=== PATIENT | male | born 1940 | race Caucasian/White ===

== ENCOUNTER 2017-03-16 18:40 | Inpatient (IN) | payer OTHER ==
[~2017-03-16] VITALS: Ht 180.3 cm; Wt 75.2 kg
[2017-03-16] VITALS (10 sets, daily range): BP systolic 79–122; BP diastolic 54–71
--- NOTE | ~2017-03-16 | HC ---
[facility] [place] [place] [address] CONSULTATION Name: KEISHA BRITT Room #: 314-P ADM IN M.R.#: [id number] Admission: 03/16/17 Attend Phys: Oma Hernandez Discharge: Date of : 38 Report #: [id number] THIS REPORT FOR: //name// CC: Hola Hernandez DATE OF SERVICE: 03/16/2017 REFERRING PROVIDER: Adrián Figueroa MD. REASON FOR CONSULTATION: Emergent evaluation of abdominal pain. HISTORY OF PRESENT ILLNESS: The patient is a 76-year-old male who was transferred to [facility] from [facility] because of overt peritonitis, hypotension and a CT scan showing global small bowel pneumatosis, portal venous gas concerning for necrotic bowel. The patient had sudden onset of severe mid abdominal pain starting at 1:30 this afternoon that awoke him from sleeping in his recliner. The patient states that the pain worsened in intensity and he presented to the [facility] Emergency Room for evaluation. After his thorough evaluation including laboratories and a CT scan of the abdomen and pelvis with findings as delineated above, general Surgery was asked to evaluate and Dr. Quinn Swanson suspected necrotic bowel and initiated transfer as we have more appropriate supportive services here. The patient was medevaced here where I am seeing the patient in the Emergency Room for initial evaluation and he is overwhelmingly hypotensive with blood pressures currently at 72/48 even in light of aggressive fluid resuscitation. The patient did receive a dose of Levaquin and Flagyl at the outside hospital and certainly exhibits gross peritonitis at this time. PAST MEDICAL HISTORY: Hypertension, coronary artery disease with prior KS, COPD and tobaccoism. PAST SURGICAL HISTORY: Prior coronary stenting and hip replacement. HOME MEDICATIONS: Ventolin inhaler, losartan, hydrochlorothiazide, Bystolic and simvastatin. ALLERGIES: No known drug allergies. FAMILY HISTORY: Reviewed and noncontributory. SOCIAL HISTORY: The patient has a very lengthy smoking history of greater than 50 years and drinks wine on a weekly basis. He lives at home with his and has a son and daughter here today. His son is a dentist in town. He has no history of illicit drug use. [facility] [address] [place] [address] CONSULTATION Name: KEISHA BRITT Room #: 314-P [facility] IN M.R.#: [id number] Admission: 03/16/17 Attend Phys: Oma Hernandez Discharge: Date of : 38 Report #: [id number] REVIEW OF SYSTEMS: GENERAL: The patient denies nocturnal fevers or chills. HEENT: No change in vision, change in hearing. NECK: No swelling or difficulty swallowing. HEART: No chest pain or palpitations. LUNGS: No cough or shortness of breath. ABDOMEN: Abdominal pain. No nausea or vomiting. GENITOURINARY: No dysuria or hematuria. ENDOCRINE: No polyuria, polydipsia. HEMATOLOGIC: No history of bleeding or easy bruising. EXTREMITIES: No history of weakness or limited range of motion. NEUROLOGIC: No history of syncope or near syncopal episodes. SKIN AND INTEGUMENT: No history of abnormal lesions or moles. PSYCHIATRIC: No history of anxiety or depression. PHYSICAL EXAMINATION: VITAL SIGNS: Temperature was 97.1, pulse 111, respirations 24, blood pressure 72/48. He stands 5 feet 11 inches tall and weighs 159 pounds. GENERAL: He is alert and oriented, in significant distress. HEENT: Normocephalic, atraumatic. Pupils equal, round, reactive to light. NECK: Supple, without lymphadenopathy. Trachea midline. HEART: Tachycardic, but regular rhythm. LUNGS: Decreased air entry at bases, but clear to auscultation otherwise bilaterally. ABDOMEN: Distended, firm, taut and grossly peritonitic with positive guarding, positive rebound and no appreciable bowel sounds. GENITOURINARY: Normal external male genitalia. EXTREMITIES: No clubbing, cyanosis or edema. NEUROLOGIC: Cranial nerves 2 through 12 are grossly intact. PSYCHIATRIC: Normal mood and affect. SKIN AND INTEGUMENT: No abnormal lesions or moles. LABORATORY AND X-RAY DATA: Review of labs from the outside hospital show white blood cell count of 8.6 thousand; hemoglobin 16.8; platelets 241,000. Creatinine 1.0. Liver function enzymes are normal. Lipase 105. Troponins negative. CT scan shows distal small-bowel obstruction with small bowel pneumatosis and marked portal venous gas. ASSESSMENT AND PLAN: A 76-year-old male with what appears to be likely ischemic bowel secondary to small-bowel obstruction of unknown etiology as he has had no abdominal operations. After a thorough discussion of greater than an hour involving discussing with the Emergency Room physician at [facility], Dr. Swanson, the surgeon at [facility] as well as Dr. Espinal of the Cardiology Service who follows this patient and discussing with the patient himself including performing a thorough physical exam and the possible etiology of his abdominal catastrophe, we have made arrangements to proceed [facility] [address] [place] [address] CONSULTATION Name: KEISHA BRITT Room #: 314-P ADM IN M.R.#: [id number] Admission: 03/16/17 Attend Phys: Oma Hernandez Discharge: Date of : 39 Report #: [id number] emergently to the operating room for exploratory laparotomy. Risks, benefits and alternatives of that have been discussed with the patient in great detail and he agrees to proceed as outlined. I sincerely appreciate this consult. I will follow closely postoperatively and leave any further recommendations in the patient's chart as appropriate. <ELECTRONICALLY SIGNED> By: Brady Sorensen MD, FACS 03/22/17 2254 1523 0025 Brady Sorensen MD, FACS /nt
--- NOTE | ~2017-03-16 | EKG ---
[address] [place] [address] ELECTROCARDIOGRAM REPORT Name: KEISHA BRITT Room #: 239-P ADM IN M.R.#: [id number] Admission: 03/16/17 Attend Phys: Oma Hernandez Discharge: Date of : 39 Report #: [id number] THIS REPORT FOR: //name// [facility] Test Date: 2017-03-17 Test Time: 09:11:51 Pat Name: KEISHA BRITT Department: Room: 239 P Gender: M Paper Winder: NACHO : 1940 Requested By: Nahomi Perry Order Number: [id number] MD: Ventura Jacinto Measurements Intervals [place] Rate: 73 P: 61 VA: 167 QRS: 63 QRSD: 103 T: 57 QT: 402 QTc: 443 Interpretive Statements Sinus rhythm Low voltage, extremity leads Compared to ECG 01/29/2006 06:58:[address] and T-wave abnormality no longer present Electronically Signed On 03-18-2017 12:37:36 CDT by Ventura Jacinto [email or web address] <ELECTRONICALLY SIGNED> By: Ventura Jacinto MD, [facility] 03/18/17 1237 0 0 Ventura Jacinto MD, [facility] /EPI
--- NOTE | ~2017-03-16 | 2DMMODE ---
[facility] [address] [place] [address] 2 D/M-MODE ECHOCARDIOGRAM Name: KEISHA BRITT Room #: 239-P ADM IN M.R.#: [id number] Admission: 03/16/17 Attend Phys: Oma Ely Discharge: Date of : 38 Date of Service: 03/17/17 0924 Report #: [id number] THIS REPORT FOR: //name// APPROVED REPORT Study performed: 03/17/2017 08:14:09 EXAM: Comprehensive 2D, Doppler, and color-flow Echocardiogram Patient Location: Bedside Room #: 239 Status: routine BSA: 1.91 HR: 74 bpm BP: 94/64 mmHg Rhythm: NSR Other Information Study Quality: Fair/ limited windows Indications Hypotension COPD CAD Hx: [place] 2D Dimensions RVDd: 37.64 mm LVEF(%): 68.93 (>50%) IVSd: 9.04 (7-11mm) LVOT Diam: 20.67 (18-24mm) LVDd: 37.06 mm PWd: 7.46 (7-11mm) LVDs: 23.01 (25-40mm) Aortic Root: 29.49 mm Christie's LVEF: 68.93 % Aortic Valve AoV Peak David.: 1.16 m/s AO Peak Gr.: 5.42 mmHg LVOT Max P.19 mmHg LVOT Max V: 0.89 m/s PEDRO Vmax: 2.57 cm2 Mitral Valve E/A Ratio: 0.5 MV Decel. Time: 164.22 ms MV E Max David.: 0.31 m/s [facility] [address] [place] [address] 2 D/M-MODE ECHOCARDIOGRAM Name: KEISHA BRITT Room #: 239-P [facility] IN .R.#: [id number] Admission: 03/16/17 Attend Phys: Oma Ely Discharge: Date of : 38 Date of Service: 03/17/17 0924 Report #: [id number] MV A David.: 0.58 m/s MV PHT: 47.62 ms IVRT: 101.50 ms Pulmonary Valve PV Peak David.: 0.82 m/s PV Peak Gr.: 2.68 mmHg Tricuspid Valve TR Peak David.: 2.82 m/s RAP Estimate: 10.00 mmHg TR Peak Gr.: 31.87 mmHg PA Pressure: 42.00 mmHg Left Ventricle The left ventricle is normal size. There is normal LV segmental wall motion. There is normal left ventricular wall thickness. The left ventricular systolic function is normal. LVEF is 55%. Grade I - abnormal relaxation pattern. Right Ventricle Right ventricle is at the upper limits of normal. The right ventricular systolic function is normal. Atria The left atrium size is normal. The right atrium size is normal. Aortic Valve Aortic valve is calcified. No aortic regurgitation is present. There is no aortic valvular stenosis. Mitral Valve The mitral valve is normal in structure. There is no mitral valve regurgitation noted. No evidence of mitral valve stenosis. Tricuspid Valve The tricuspid valve is normal in structure. There is trace tricuspid regurgitation. The right atrial pressure is estimated at 10 mmHg. There is moderate pulmonary hypertension estimated PAP of 40mmHg. Pulmonic Valve Pulmonic valve is not well visualized. There is no pulmonic valvular regurgitation. Great Vessels The aortic root is normal in size. IVC is normal in size and [facility] [address] [place] [address] 2 D/M-MODE ECHOCARDIOGRAM Name: KEISHA BRITT Room #: 239-P ADM IN M.R.#: [id number] Admission: 03/16/17 Attend Phys: Oma Ely Discharge: Date of : 38 Date of Service: 03/17/17 0924 Report #: [id number] collapses <50% with inspiration. Pericardium There is no pericardial effusion. <Conclusion> The left ventricular systolic function is normal. LVEF is 55%. There is normal LV segmental wall motion. Right ventricle is at the upper limits of normal. Aortic valve is calcified. No aortic valvular stenosis or insufficiency The mitral valve is normal in structure. No mitral valve regurgitation Pulmonary artery pressure of 40mmHg There is no pericardial effusion. <ELECTRONICALLY SIGNED> By: Ventura Jacinto MD, [facility] 03/17/17923 3 3 Ventura Jacinto MD, [facility] /INF
--- NOTE | ~2017-03-16 | HC ---
[facility] [place] [address] CONSULTATION Name: KEISHA BRITT Room #: 205-P ADM IN M.R.#: [id number] Admission: 03/16/17 Attend Phys: Oma Hernandez Discharge: Date of : 39 Report #: [id number] THIS REPORT FOR: //name// CC: Hola Hernandez DATE OF SERVICE: 03/24/2017 REASON FOR CONSULTATION: I was asked to evaluate concerning peritonitis. HISTORY OF PRESENT ILLNESS: The patient is a 76-year-old, admitted on 03/16/2017 with the acute onset of abdominal pain, found to have an acute abdomen and was transferred from the Emergency Room at [facility] to [facility] for emergent surgery. CT scan showed evidence of diffuse pneumatosis and portal venous gas. The patient was septic and required emergent surgery where Dr. Brady Sorensen performed the laparotomy, where he found incarcerated umbilical hernia with small-bowel obstruction. This was released and the pneumatosis and ischemic bowel improved significantly. No small bowel tissue was lost. There was question of a segment of transverse colon that was stuck down into the hernia that may have had a serosal injury. This was repaired. There was no through thickness injury identified. Postoperatively, he was in the Intensive Care Unit, now is on the floor, doing reasonably well. Still has an incisional VAC in place. He has JACK drain with serous output, still a large amount. No fever, chills or sweats. His white count now is normal. He has been getting out of bed, walking in the halls. ALLERGIES: None. MEDICATIONS: As noted on his MAR including Zosyn. He is on 3 liters of oxygen per nasal cannula. REVIEW OF SYSTEMS: Notes intermittent cough with small amount of sputum production. No chest pain. No nausea or vomiting. He has had a small amount of oral intake. No dysuria. No rash. PAST MEDICAL HISTORY: Coronary artery disease, [place], COPD, coronary stenting and total hip arthroplasty. SOCIAL HISTORY: Tobacco smoker. No significant alcohol intake. PHYSICAL EXAMINATION: VITAL SIGNS: He is afebrile, hemodynamically stable. He is on 3 liters of oxygen per nasal cannula. He is sitting up in his chair. HEENT: Unremarkable. CHEST: Clear: He did have decreased breath sounds in the bases bilaterally. HEART: Regular without murmur. [facility] [address] [place] [address] CONSULTATION Name: KEISHA BRITT Room #: 205 ADM IN M.R.#: [id number] Admission: 03/16/17 Attend Phys: Oma Hernandez Discharge: Date of : 39 Report #: [id number] ABDOMEN: Mildly distended, minimally tender. JACK drain with serous output. Incisional VAC in place. EXTREMITIES: 2+ edema to his lower extremities. IV access was unremarkable. LABORATORY STUDIES: Sodium 144, potassium 3.6, bicarbonate 37, creatinine 0.5. Hemoglobin 14.3, WBC 10.6, platelet count 225,000. Abdominal fluid collection at the time of surgery has grown Klebsiella pneumoniae and Bacteroides fragilis. The Klebsiella was resistant to ampicillin, otherwise sensitive. Chest x-ray, basilar atelectasis. IMPRESSION: A 76-year-old, now 8 days post-laparotomy for small-bowel obstruction and ischemic intestine. Has evidence of polymicrobial peritonitis. I suspect translocation of bacteria during the compromised event. Considering he is afebrile, his white count is normal and he is now taking ____. We will finish his course of therapy with oral antibiotic. Anticipate finishing his course of treatment end of the week. <ELECTRONICALLY SIGNED> By: Darnell Lowery MD 03/31/17 1216 1419 [id number] Darnell Lowery MD /nt
--- NOTE | ~2017-03-16 | O ---
[facility] [place] [address] OPERATIVE REPORT Name: KEISHA BRITT Room #: 314-P [facility] IN M.R.#: [id number] Admission: 03/16/17 Attend Phys: Oma Hernandez Discharge: Date of : 39 Report #: [id number] THIS REPORT FOR: //name// CC: Hola Hernandez DATE OF SERVICE: 03/16/2017 PREOPERATIVE DIAGNOSES: 1. Abdominal sepsis. 2. Suspected necrotic bowel. 3. Hypertension. 4. Coronary artery disease status post myocardial infarction with stenting. 5. Chronic obstructive pulmonary disease. 6. Tobaccoism. POSTOPERATIVE DIAGNOSES: 1. Abdominal sepsis. 2. Suspected necrotic bowel. 3. Hypertension. 4. Coronary artery disease status post myocardial infarction with stenting. 5. Chronic obstructive pulmonary disease. 6. Tobaccoism. 7. Early global ischemic small bowel secondary to a small-bowel obstruction from adhesions of an incarcerated umbilical hernia. PROCEDURES PERFORMED: 1. Exploratory laparotomy with washout. 2. Lysis of adhesions with release of a small-bowel obstruction. 3. Primary suture repair of an incarcerated umbilical hernia. 4. Placement of a topical wound VAC device (Prevena). SURGEON: Brady Sorensen M.D. [employer]EARCH [employer] SUPERVISOR: Vic Ortiz M.D. ANESTHESIA: General endotracheal anesthesia. ESTIMATED BLOOD LOSS: Minimal (less than 20 mL). COMPLICATIONS: None appreciated. SPECIMENS: Culture swabs x 2 to microbiology. INDICATIONS: The patient is a 76-year-old male with a past history of COPD from tobaccoism as well as coronary artery disease for which he has [facility] [address] [place] [address] OPERATIVE REPORT Name: KEISHA BRITT Room #: 314-P ADM IN M.R.#: [id number] Admission: 03/16/17 Attend Phys: Oma Hernandez Discharge: Date of : 39 Report #: [id number] undergone stenting secondary to an MT in the past, who presented to an outside hospital with acute sudden onset mid abdominal pain that woke him from a nap at 1:30 p.m. this afternoon. The patient was evaluated with labs and a CT scan of the abdomen and pelvis and while his labs were largely normal, his CT scan showed global small bowel pneumatosis with portal venous gas and a distal small-bowel obstruction concerning for necrotic bowel. The patient was grossly hypotensive with overt peritonitis and as such was helicoptered here to [facility] where evaluation confirmed the presence of peritonitis and a full review of his workup was undertaken and as such, we are presenting emergently to the operating room for exploratory laparotomy tonight. DESCRIPTION OF PROCEDURE: After explaining the risks, benefits and alternatives of the procedure with the patient in detail in the preoperative holding area and obtaining written consent, the patient was brought to the operating room and placed supine on the operating room table. After conducting a thorough timeout procedure verifying correct patient and procedure, the patient was given general endotracheal anesthesia. Once adequate anesthesia was obtained, his SCDs were hooked up to pneumatic compression device. He was given a preoperative dose of antibiotics in line with the SCIP protocol. The patient's abdomen was prepped and draped in standard surgical sterile fashion after placement of a Elkins catheter for intraoperative fluid monitoring. A #10 bladed scalpel was used to create a longitudinal midline wound carried to the left of the umbilicus. Electrocautery was used to carry this down through skin and subcutaneous tissues to ensure hemostasis. Once I arrived upon the level of the fascia, this was scored down the midline and the peritoneum was elevated between 2 hemostats and Metzenbaum scissors were used to gain entry into the abdominal cavity. A finger was then placed in the abdomen and I proceeded to open the entire longitudinal midline wound in this controlled fashion to prevent injury to the underlying structures from thermal burn from electrocautery. Once the entire abdominal wound was opened, there was evidence of foul smelling ascites that were not overtly purulent or murky appearing and culture swabs x 2 were taken and passed off the field for microbiologic analysis. Fluid was suctioned out of the abdomen and we proceeded to enact a full evaluation of the intra-abdominal domain. The small bowel was identified and was slightly dusky and had overt pneumatosis from the ligament of Treitz distally to the point where there was a band of omentum incarcerated within an umbilical hernia that had been opened upon entry into the abdominal cavity. It felt slightly stuck low in the pelvis, but upon further evaluation, showed that this was actually a small bowel torsed along the root of the mesentery and palpation of the root of the mesentery showed no appreciable pulsation in the SMA. Upon freeing this from the pelvis and performing a clockwise rotation of the small bowel, it completely detorsed the small bowel and within a 20-minute period, the small bowel pneumatosis had resolved and the bowel itself was pink and healthy appearing. Palpation of the root of the mesentery showed bounding pulses of the SMA as well as all peripheral tributaries. We continued our thorough evaluation of the intra-abdominal domain at this point. The stomach was evaluated anteriorly and [facility] [address] [place] [address] OPERATIVE REPORT Name: KEISHA BRITT Room #: 314-P ADM IN M.R.#: [id number] Admission: 03/16/17 Attend Phys: Oma Hernandez Discharge: Date of : 39 Report #: [id number] was healthy. We opened the lesser sac and the posterior gastric wall was healthy. I then closed the opening in the lesser sac using 3-0 PDS in standard fashion. We performed a gentle kocherization of the duodenum showing no evidence of pneumatosis or pathology. The gallbladder was healthy as well as the liver. The ligament of Treitz was identified once again and the small bowel at this juncture after a 20-minute period of reperfusion showed no evidence of pathology from the ligament of Treitz all the way down to the ileocecal valve. The patient's appendix was long and serpiginous but not dilated and uninflamed. The ascending, transverse and descending colons were evaluated and there was only one point on the mid transverse colon that had been stuck to the band of omentum, incarcerated within the umbilical hernia that had any evidence of potential serosal defect; however, no overt enterotomy was seen whatsoever and the serosal defect itself was questionable at best. Nonetheless, due to the patient's septic status, I did elect to oversew this to be safe and as such several sutures of 3-0 PDS were placed transversely at the site of questionable serosal defect in a standard interrupted Lembert fashion. Finger palpation of the colon at this juncture showed it to be persistently widely patent. On further evaluation, the entire abdominal domain once again showed no evidence of pathology at this juncture. We irrigated the intra-abdominal domain copiously with 6 liters of normal saline, which ran clear throughout. I did elect to leave a 19-Iraqi round Antelmo-Aguilar drain to prevent any bacterial peritonitis from setting in, which is likely due to bacterial translocation into the ascites. This was brought out through the right lower quadrant and sutured to the skin using 2-0 nylon in standard fashion. This was placed low in the pelvis and ran up the left pericolic gutter. One final evaluation of the intraabdominal domain showed healthy small bowel throughout. The patient was beginning to make copious dilute urine throughout the procedure as the bowel ischemia was corrected and had resolved. At this juncture, we proceeded to close the abdominal domain using looped #1 PDS in standard running fashion. Skin was copiously irrigated and closed with chelita. I then elected to place a Prevena topical wound VAC to prevent postoperative wound infection, which was placed in standard fashion. We had an excellent seal from the Prevena vacuum with no leak identified. An abdominal binder was then placed on the patient's abdomen. At the end of the procedure, all instrument, needle and sponge counts were correct. The patient tolerated the procedure actually improving through the course of the procedure and was transitioned to the Intensive Care Unit still intubated, but off pressors at this time making excellent urine and stabilizing with no apparent complications. <ELECTRONICALLY SIGNED> By: Brady Sorensen MD, FACS 03/22/17 2254 1549 1658 Brady Sorensen MD, FACS /nt
--- NOTE | ~2017-03-16 | H ---
[facility] [place] [address] HISTORY AND PHYSICAL Name: KEISHA BRITT Room #: 239-P ADM IN M.R.#: [id number] Admission: 03/16/17 Attend Phys: Oma Hernandez Discharge: Date of : 39 Report #: [id number] THIS REPORT FOR: //name// CC: Dr. Hola Hernandez DATE OF SERVICE: 03/16/2017 ATTENDING PHYSICIAN: Adrián Figueroa MD PRIMARY CARE PHYSICIAN: Dr. Hola Valerio. CHIEF COMPLAINT: Abdominal pain. HISTORY OF PRESENT ILLNESS: The patient is a 76-year-old male who was sent to [place] from [facility] because of possible ischemic bowel. He apparently had sudden onset of severe mid abdominal pain starting about 1:30 in the afternoon. This woke him from his sleep. The pain worsened in intensity, so he presented initially to [place] ER where he was found to have diffuse pneumatosis with severe portal venous gas and distal bowel obstruction on a CT. He was also hypotensive with concerns for peritonitis and he was sent to [place] on an emergency basis for surgical intervention. He has already been taken to OR for an exploratory laparotomy and is now in ICU on the ventilator. He does have underlying COPD. He has remained hypotensive and requiring vasopressors at this time. His apparently was here providing some information but has now gone home for the evening. Further information was obtained from [place] records. PAST MEDICAL HISTORY: Hypertension, anxiety, coronary artery disease with prior [place], COPD. PAST SURGICAL HISTORY: Coronary stent in 2006 and a hip replacement. ALLERGIES: None. HOME MEDICATIONS: Ventolin inhaler p.r.n., losartan/hydrochlorothiazide 100/12.5 one tab daily, Bystolic 10 mg daily, and simvastatin 20 mg daily. SOCIAL HISTORY: The patient smokes 6-7 cigarettes per day, has been smoking for about 50 years. He drinks wine on a weekly basis. He lives at home with his . There is no history of drug use. FAMILY HISTORY: Unobtainable due to intubated status. REVIEW OF SYSTEMS: Unobtainable due to intubated status. [facility] [address] [place] [address] HISTORY AND PHYSICAL Name: KEISHA BRITT Room #: 239-P [facility] IN ..#: [id number] Admission: 03/16/17 Attend Phys: Oma Hernandez Discharge: Date of : 39 Report #: [id number] PHYSICAL EXAMINATION: GENERAL: The patient is a sedated male, currently on the ventilator in the ICU postoperatively. VITAL SIGNS: Temperature is 36.7, heart rate 72, respirations 13, blood pressure is 80/64, and oxygen is 98% . HEENT: PERRLA. Sclerae is nonicteric. Oral mucosa is with ET tube in place. NECK: No JVD noted. CARDIOVASCULAR: Normal S1, S2. No murmurs, rubs or gallops. RESPIRATORY: Breath sounds are with expiratory wheezes bilaterally. He is breathing with the vent and in no respiratory distress. There is ET tube in place. ABDOMEN: With midline abdominal incision covered with wound VAC. No bowel sounds. He has an NG tube in place draining small amounts of light brown fluid. VASCULAR: His hands and feet are somewhat cool. Pedal pulses are 1+ bilaterally. Radial pulses are 2+ bilaterally. NEUROLOGIC: The patient is currently sedated on the vent. He is restrained, but he will try to move his arms and legs spontaneously. GENITOURINARY: Elkins catheter is straining clear yellow urine. LABORATORY DATA AND DIAGNOSTICS: Labs obtained at [place] showed a WBC of 8.6, hemoglobin 16.8, platelets 241. Sodium 131, potassium 4.2, BUN 21, creatinine 1.0. Glucose 195. LFTs were within normal limits. Lipase is 105. Troponins negative. CT of abdomen done at [place] showed a distal small bowel obstruction with marked portal venous gas, concerning for underlying bowel ischemia. ASSESSMENT AND PLAN: 1. Small bowel obstruction with possible ischemic bowel. The patient has already been taken to surgery and had lysis of adhesions with release of small bowel obstructive done. There was also repair of an incarcerated umbilical hernia. Initially, there was global small bowel ischemia with pneumatosis but there was complete resolution of all pneumatosis and ischemia once perfusion was reestablished. We will continue to treat for possible peritonitis with IV antibiotics including Zosyn. Follow labs. Continue SURGICAL CORSETIER for pain control. 2. Hypotension. This may be due to sepsis from peritonitis, but his white blood cell count was normal and he is afebrile. We will continue with Zosyn and follow labs. We will try to wean off Jorge-Synephrine. Hold home blood pressure medications and follow all cultures. 3. Acute on chronic respiratory failure. The patient remains intubated. Pulmonary is consulted. Add scheduled breathing treatments. Wean vent per Pulmonary. 4. Hyperglycemia. There are no records stating any history of diabetes. We will check hemoglobin A1c. 5. History of coronary artery disease. Initial troponin at [place] was negative. Continue to monitor on telemetry. 6. Deep venous thrombosis prophylaxis. Start Lovenox per surgery. [address] [address] HISTORY AND PHYSICAL Name: KEISHA BRITT Room #: 239-P ADM IN M.R.#: [id number] Admission: 03/16/17 Attend Phys: Oma Hernandez Discharge: Date of : 39 Report #: [id number] We will continue to follow the patient closely throughout the hospitalization and make changes based on clinical status. <ELECTRONICALLY SIGNED> By: JOSE Foley 03/18/17 0835 05 [id number] JOSE Foley /milind
--- NOTE | ~2017-03-16 | HC ---
[facility] [place] [address] CONSULTATION Name: KEISHA BRITT Room #: 314-P [facility] IN M.R.#: [id number] Admission: 03/16/17 Attend Phys: Oma Hernandez Discharge: Date of : 39 Report #: [id number] THIS REPORT FOR: //name// CC: Hola Hernandez DATE OF SERVICE: 03/24/2017 HISTORY OF PRESENT ILLNESS: The patient is a 76-year-old white male who was originally admitted with abdominal pain, noted to have abdominal sepsis, underwent exploratory laparotomy with release of an adhesion for small-bowel obstruction. There was note of an ischemic bowel with release of the adhesion with improvement. Postoperatively, he has had a wound VAC in place. His course has been complicated by eleww-xj-txnryqi respiratory failure. Pulmonary Medicine is closely involved. We are seeing him in Rehabilitation Medicine consultation. PAST MEDICAL HISTORY: Includes COPD, coronary artery disease status post stenting, had prior [place], history of hypertension and anxiety. PAST SURGICAL HISTORY: Includes coronary stent in 2006 and hip replacement. ALLERGIES: No known drug allergies. MEDICATIONS: Please see the full medication listing. HABITS: Tobacco: 6-7 cigarette per day, smoking about 50 years. Drinks wine on a weekly basis. SOCIAL HISTORY: He lives at home with his . This is a house with 3 steps in, 12 steps inside. He did not utilize gait aids premorbidly. FAMILY HISTORY: Noncontributory. REVIEW OF SYSTEMS: No current complaints of chest pain or abdominal discomfort. He notes some shortness of breath with limited activity. No focal extremity pain complaints were verbalized. PHYSICAL EXAMINATION: GENERAL: A 76-year-old white male in no obvious distress. VITAL SIGNS: Last recorded temperature is 97.7, pulse 90, respirations 18, blood pressure 121/74. He is alert, pleasant. HEENT: Appeared to be benign. NEUROLOGIC: Cranial nerves are intact. He is on 3 liters nasal prong O2. Facies are symmetric. He has functional range of motion of both upper extremities. Strength grade 4-/5. DTRs are trace to 1. Lower extremities, no [facility] [address] [place] [address] CONSULTATION Name: KEISHA BRITT Room #: 314-P [facility] IN M.R.#: [id number] Admission: 03/16/17 Attend Phys: Oma Hernandez Discharge: Date of : 39 Report #: [id number] focal calf swelling, functional range of motion with strength grade 4- to 4/5. DTRs are trace to 1. He was able to contact guard for sit to stand and did ambulate up to 155 feet. Contact guard with a front-wheeled walker. He did have his oxygen turned up to 4 liters with activity and is on 2.5 liters at rest. ASSESSMENT: A 76-year-old white male with the following problem list: 1. Pulmonary rehabilitation. 2. Medical complexity with generalized debilitation. 3. Kcogj-mt-brylavd respiratory failure. 4. Ischemic small bowel from adhesions, status post-surgical release. 5. Ileus. 6. Coronary artery disease with prior stenting. PLAN: He did ambulate up to 155 feet contact guard. He does have decreased endurance and is on oxygen, which is new for him. He may be too high level for us, but we will continue to follow along with you for now. Thank you for asking us to assist in this patient's care. <ELECTRONICALLY SIGNED> By: Hero Dillard MD 03/25/17 1608 [id number] 0415 Hero Dillard MD /nt
[2017-03-16 23:08] LABS: ABG SAMPLE TYPE ARTERIAL; BE(vivo) -3.9 mmol/L (-2 to +3); HCO3 25.7 mmol/L (22.0-26.0); LACTATE 1.26 mmol/L (0.5-2.0); O2(CT) 23.3 mL/dL (15.0-23.0); O2Hb 94.6 % (92.0-98.0); PCO2 64.8 mmHg (35.0-45.0); PO2 103.5 mmHg (80.0-100.0); sO2 96.5 % (92.0-98.0); tCO2 27.7 mmol/L (24.0-30.0)
[2017-03-16 23:09] LABS: STICK SITE L.RADIAL; TIDAL VOLUME 600 ml; pH 7.216 (7.360-7.450)
[2017-03-17] VITALS (87 sets, daily range): BP systolic 67–125; BP diastolic 49–77
[2017-03-17 04:12] LABS: HEMATOCRIT 43.8 % (42.0-52.0); HEMOGLOBIN 14.5 gm/dL (14.0-18.0); MCH 30.2 pg (26.0-34.0); MCHC 33.2 g/dL (28.0-37.0); MCV 90.9 fL (80.0-100.0); RBC 4.82 mil/uL (4.50-6.00); RDW 13.5 % (10.5-14.5); WBC 13.1 thou/uL (4.0-11.0)
[2017-03-17 04:25] LABS: CALCIUM 7.8 mg/dL (8.5-10.1); CREATININE 0.9 mg/dL (0.7-1.3); POTASSIUM 4.4 mmol/L (3.5-5.1)
[2017-03-17 05:26] LABS: ABG SAMPLE TYPE ARTERIAL; BE(vivo) -0.1 mmol/L (-2 to +3); HCO3 24.3 mmol/L (22.0-26.0); LACTATE 2.04 mmol/L (0.5-2.0); O2(CT) 20.9 mL/dL (15.0-23.0); O2Hb 96.5 % (92.0-98.0); PCO2 38.8 mmHg (35.0-45.0); PO2 123.1 mmHg (80.0-100.0); pH 7.414 (7.360-7.450); sO2 98.5 % (92.0-98.0); tCO2 25.5 mmol/L (24.0-30.0)
[2017-03-17 05:27] LABS: STICK SITE L.RADIAL; TIDAL VOLUME 600 ml
[2017-03-18] VITALS (60 sets, daily range): BP systolic 83–127; BP diastolic 50–73
[2017-03-18 03:06] LABS: GLYCOHEMOGLOBIN (HGB A1C) 5.2 % (4.8-5.6)
[2017-03-18 04:43] LABS: HEMATOCRIT 41.6 % (42.0-52.0); HEMOGLOBIN 14.1 gm/dL (14.0-18.0); MCH 30.9 pg (26.0-34.0); MCHC 33.8 g/dL (28.0-37.0); MCV 91.4 fL (80.0-100.0); PLATELET COUNT 185 thou/uL (150-400); RBC 4.56 mil/uL (4.50-6.00); RDW 13.6 % (10.5-14.5); WBC 10.2 thou/uL (4.0-11.0)
[2017-03-18 04:50] LABS: MANUAL DIFF YES
[2017-03-18 04:58] LABS: ALBUMIN 2.9 g/dL (3.4-5.0); CALCIUM 7.6 mg/dL (8.5-10.1); CREATININE 0.8 mg/dL (0.7-1.3); TOTAL BILIRUBIN 0.6 mg/dL (<0.1-1.0); TOTAL PROTEIN 5.8 g/dL (6.4-8.2)
[2017-03-18 06:33] LABS: ATYPICAL LYMPHS 6 %; TOTAL CELL COUNT 100
[2017-03-18 08:38] LABS: ABG SAMPLE TYPE ARTERIAL; BE(vivo) -4.2 mmol/L (-2 to +3); HCO3 23.4 mmol/L (22.0-26.0); LACTATE 0.78 mmol/L (0.5-2.0); O2(CT) 19.9 mL/dL (15.0-23.0); PCO2 52.7 mmHg (35.0-45.0); PO2 76.7 mmHg (80.0-100.0); STICK SITE L.BRACHIAL; pH 7.266 (7.360-7.450); sO2 93.3 % (92.0-98.0); tCO2 25.1 mmol/L (24.0-30.0)
[2017-03-18 08:39] LABS: Pressure Support 10 cm H20
[2017-03-18 17:24] LABS: ABG SAMPLE TYPE ARTERIAL; BE(vivo) -2.2 mmol/L (-2 to +3); HCO3 23.8 mmol/L (22.0-26.0); LACTATE 1.05 mmol/L (0.5-2.0); O2(CT) 19.1 mL/dL (15.0-23.0); O2Hb 91.4 % (92.0-98.0); STICK SITE R.RADIAL; pH 7.341 (7.360-7.450); sO2 91.2 % (92.0-98.0); tCO2 25.2 mmol/L (24.0-30.0)
[2017-03-19] VITALS (10 sets, daily range): BP systolic 96–124; BP diastolic 54–79
[2017-03-19 05:15] LABS: HEMATOCRIT 41.7 % (42.0-52.0); HEMOGLOBIN 13.9 gm/dL (14.0-18.0); MCH 30.6 pg (26.0-34.0); MCHC 33.4 g/dL (28.0-37.0); MCV 91.7 fL (80.0-100.0); PLATELET COUNT 157 thou/uL (150-400); RBC 4.55 mil/uL (4.50-6.00); RDW 13.8 % (10.5-14.5); WBC 8.2 thou/uL (4.0-11.0)
[2017-03-19 05:16] LABS: MANUAL DIFF YES
[2017-03-19 05:22] LABS: ABG SAMPLE TYPE ARTERIAL; BE(vivo) 1.5 mmol/L (-2 to +3); HCO3 29.4 mmol/L (22.0-26.0); LACTATE 1.06 mmol/L (0.5-2.0); O2(CT) 18.9 mL/dL (15.0-23.0); O2Hb 92.1 % (92.0-98.0); PCO2 60.6 mmHg (35.0-45.0); PO2 67.5 mmHg (80.0-100.0); STICK SITE R.RADIAL; pH 7.304 (7.360-7.450); sO2 91.2 % (92.0-98.0); tCO2 31.3 mmol/L (24.0-30.0)
[2017-03-19 05:31] LABS: ALBUMIN 2.6 g/dL (3.4-5.0); CALCIUM 7.9 mg/dL (8.5-10.1); CREATININE 0.6 mg/dL (0.7-1.3); MAGNESIUM 1.9 mg/dL (1.8-2.4); PHOSPHORUS 2.5 mg/dL (2.5-4.9); POTASSIUM 4.2 mmol/L (3.5-5.1); TOTAL BILIRUBIN 0.4 mg/dL (<0.1-1.0); TOTAL PROTEIN 5.7 g/dL (6.4-8.2)
[2017-03-19 07:56] LABS: ABSOLUTE NEUTROPHILS 7.4 thou/uL (1.4-8.2); TOTAL CELL COUNT 100
[2017-03-20 04:05] VITALS: BP 121/75
[2017-03-20 05:58] LABS: ALBUMIN 2.6 g/dL (3.4-5.0); CALCIUM 8.2 mg/dL (8.5-10.1); CREATININE 0.6 mg/dL (0.7-1.3); MAGNESIUM 1.8 mg/dL (1.8-2.4); PHOSPHORUS 1.8 mg/dL (2.5-4.9); POTASSIUM 3.9 mmol/L (3.5-5.1)
[2017-03-20 06:18] LABS: HEMATOCRIT 41.6 % (42.0-52.0); HEMOGLOBIN 13.5 gm/dL (14.0-18.0); MCH 30.1 pg (26.0-34.0); MCHC 32.6 g/dL (28.0-37.0); MCV 92.5 fL (80.0-100.0); RBC 4.49 mil/uL (4.50-6.00); RDW 13.7 % (10.5-14.5); WBC 8.8 thou/uL (4.0-11.0)
[2017-03-20 08:23] VITALS: BP 119/69
[2017-03-20 16:00] VITALS: BP 119/73
[2017-03-20 20:00] VITALS: BP 125/76
[2017-03-21 04:05] VITALS: BP 135/80
[2017-03-21 04:59] LABS: ALBUMIN 2.6 g/dL (3.4-5.0); CREATININE 0.5 mg/dL (0.7-1.3); MAGNESIUM 1.7 mg/dL (1.8-2.4); PHOSPHORUS 2.4 mg/dL (2.5-4.9); POTASSIUM 3.6 mmol/L (3.5-5.1)
[2017-03-21 08:56] VITALS: BP 118/83
[2017-03-21 10:32] LABS: ABG SAMPLE TYPE VENOUS; BE(vivo) 5.8 mmol/L (-2 to +3); HCO3 34.7 mmol/L (22.0-26.0); LACTATE 0.85 mmol/L (0.5-2.0); O2(CT) 21.2 mL/dL (15.0-23.0); O2Hb VENOUS 91.3 (65.0-85.0); PCO2 VENOUS 68.2 mmHg (41.0-51.0); PO2 VENOUS 69.5 mmHg (35.0-45.0); sO2 VENOUS 92.1 % (65.0-85.0); tCO2 36.8 mmol/L (24.0-30.0)
[2017-03-21 10:32] LABS: HEMATOCRIT 45.5 % (42.0-52.0); HEMOGLOBIN 15.3 gm/dL (14.0-18.0); MCH 30.8 pg (26.0-34.0); MCHC 33.7 g/dL (28.0-37.0); MCV 91.4 fL (80.0-100.0); PLATELET COUNT 197 thou/uL (150-400); RBC 4.98 mil/uL (4.50-6.00); RDW 13.8 % (10.5-14.5); WBC 10.3 thou/uL (4.0-11.0)
[2017-03-21 10:33] LABS: STICK SITE LAB
[2017-03-21 10:36] LABS: MANUAL DIFF YES
[2017-03-21 10:42] LABS: AMYLASE 14 U/L (25-115)
[2017-03-21 11:08] LABS: ABSOLUTE NEUTROPHILS 8.4 thou/uL (1.4-8.2); PLATELET ESTIMATE NORMAL; TOTAL CELL COUNT 100
[2017-03-21 17:22] VITALS: BP 124/79
[2017-03-22 06:34] LABS: HEMATOCRIT 46.5 % (42.0-52.0); MCH 29.9 pg (26.0-34.0); MCHC 32.3 g/dL (28.0-37.0); MCV 92.5 fL (80.0-100.0); PLATELET COUNT 180 thou/uL (150-400); RBC 5.03 mil/uL (4.50-6.00); RDW 13.5 % (10.5-14.5); WBC 10.2 thou/uL (4.0-11.0)
[2017-03-22 06:36] LABS: MANUAL DIFF YES
[2017-03-22 07:13] VITALS: BP 109/68
[2017-03-22 10:25] LABS: ABSOLUTE NEUTROPHILS 7.2 thou/uL (1.4-8.2); ATYPICAL LYMPHS 1 %; TOTAL CELL COUNT 100
[2017-03-22 15:11] VITALS: BP 112/71
[2017-03-22 19:48] VITALS: BP 123/66
[2017-03-23 03:28] VITALS: BP 130/84
[2017-03-23 07:25] VITALS: BP 120/75
[2017-03-23 16:21] VITALS: BP 132/77
[2017-03-23 20:25] VITALS: BP 136/85
[2017-03-24 04:03] LABS: HEMOGLOBIN 14.3 gm/dL (14.0-18.0); MCH 30.1 pg (26.0-34.0); MCHC 32.5 g/dL (28.0-37.0); MCV 92.8 fL (80.0-100.0); RBC 4.74 mil/uL (4.50-6.00); RDW 13.6 % (10.5-14.5); WBC 10.6 thou/uL (4.0-11.0)
[2017-03-24 04:10] LABS: CREATININE 0.5 mg/dL (0.7-1.3); POTASSIUM 3.6 mmol/L (3.5-5.1)
[2017-03-24 05:30] VITALS: BP 121/63
[2017-03-24 07:45] VITALS: BP 121/74
[2017-03-24 16:32] VITALS: BP 122/73
[2017-03-24 19:27] VITALS: BP 139/75
[2017-03-25 03:43] VITALS: BP 114/63
[2017-03-25 08:00] VITALS: BP 102/63
[2017-03-25 16:00] VITALS: BP 110/61
[2017-03-25 19:40] VITALS: BP 119/63
[2017-03-26] VITALS (10 sets, daily range): BP systolic 106–134; BP diastolic 60–78
[2017-03-26 06:34] LABS: ALBUMIN 2.3 g/dL (3.4-5.0); BUN 12 mg/dL (7-18); CALCIUM 8.1 mg/dL (8.5-10.1); CHLORIDE 99 mmol/L (98-107); CREATININE 0.5 mg/dL (0.7-1.3); GLUCOSE 111 mg/dL (74-106); MAGNESIUM 1.9 mg/dL (1.8-2.4); PHOSPHORUS 3.3 mg/dL (2.5-4.9); POTASSIUM 3.8 mmol/L (3.5-5.1); SODIUM 142 mmol/L (136-145)
[2017-03-26 06:59] LABS: CO2 > 45 mmol/L (21-32)
[2017-03-26 08:29] LABS: ABG SAMPLE TYPE ARTERIAL; BE(vivo) 19.3 mmol/L (-2 to +3); HCO3 53.5 mmol/L (22.0-26.0); LACTATE 0.71 mmol/L (0.5-2.0); O2(CT) 19.5 mL/dL (15.0-23.0); sO2 89.7 % (92.0-98.0); tCO2 57.3 mmol/L (24.0-30.0)
[2017-03-26 08:30] LABS: STICK SITE R.RADIAL; pH 7.253 (7.360-7.450)
[2017-03-26 11:36] LABS: ABG SAMPLE TYPE ARTERIAL; HCO3 50.2 mmol/L (22.0-26.0); LACTATE 0.66 mmol/L (0.5-2.0); O2(CT) 19.5 mL/dL (15.0-23.0); O2Hb 93.1 % (92.0-98.0); PCO2 102.4 mmHg (35.0-45.0); PO2 72.4 mmHg (80.0-100.0); STICK SITE L.RADIAL; pH 7.308 (7.360-7.450); sO2 91.8 % (92.0-98.0); tCO2 53.3 mmol/L (24.0-30.0)
[2017-03-26 18:05] LABS: ABG SAMPLE TYPE ARTERIAL; BE(vivo) 11.2 mmol/L (-2 to +3); HCO3 42.9 mmol/L (22.0-26.0); LACTATE 0.56 mmol/L (0.5-2.0); O2(CT) 19.4 mL/dL (15.0-23.0); O2Hb 90.4 % (92.0-98.0); PO2 65.7 mmHg (80.0-100.0); sO2 88.6 % (92.0-98.0); tCO2 45.9 mmol/L (24.0-30.0)
[2017-03-26 18:06] LABS: PCO2 96.3 mmHg (35.0-45.0); Pressure Support 12 cm H20; STICK SITE R.RADIAL; pH 7.267 (7.360-7.450)
[2017-03-27] VITALS (25 sets, daily range): BP systolic 99–145; BP diastolic 63–78
[2017-03-27 05:49] LABS: ABG SAMPLE TYPE ARTERIAL; BE(vivo) 14.7 mmol/L (-2 to +3); HCO3 45.1 mmol/L (22.0-26.0); LACTATE 0.64 mmol/L (0.5-2.0); O2(CT) 20.2 mL/dL (15.0-23.0); O2Hb 96.1 % (92.0-98.0); PO2 100.7 mmHg (80.0-100.0); pH 7.339 (7.360-7.450); sO2 96.9 % (92.0-98.0); tCO2 47.7 mmol/L (24.0-30.0)
[2017-03-27 05:50] LABS: PCO2 85.7 mmHg (35.0-45.0); STICK SITE R.RADIAL
[2017-03-27 05:51] LABS: Pressure Support 10 cm H20
[2017-03-27 06:09] LABS: HEMATOCRIT 43.5 % (42.0-52.0); HEMOGLOBIN 14.1 gm/dL (14.0-18.0); MCH 29.8 pg (26.0-34.0); MCHC 32.4 g/dL (28.0-37.0); RBC 4.73 mil/uL (4.50-6.00); RDW 13.2 % (10.5-14.5); WBC 11.8 thou/uL (4.0-11.0)
[2017-03-27 06:25] LABS: ALBUMIN 2.4 g/dL (3.4-5.0); BUN 11 mg/dL (7-18); CALCIUM 8.2 mg/dL (8.5-10.1); CHLORIDE 98 mmol/L (98-107); CREATININE 0.5 mg/dL (0.7-1.3); GLUCOSE 127 mg/dL (74-106); PHOSPHORUS 3.4 mg/dL (2.5-4.9); POTASSIUM 4.5 mmol/L (3.5-5.1); SODIUM 140 mmol/L (136-145)
[2017-03-27 06:27] LABS: CO2 > 45 mmol/L (21-32)
[2017-03-28] VITALS (17 sets, daily range): BP systolic 115–147; BP diastolic 62–114
[2017-03-28 04:46] LABS: HEMATOCRIT 41.2 % (42.0-52.0); HEMOGLOBIN 13.6 gm/dL (14.0-18.0); MCH 30.1 pg (26.0-34.0); MCHC 32.9 g/dL (28.0-37.0); MCV 91.3 fL (80.0-100.0); PLATELET COUNT 262 thou/uL (150-400); RBC 4.51 mil/uL (4.50-6.00); RDW 13.5 % (10.5-14.5); WBC 14.6 thou/uL (4.0-11.0)
[2017-03-28 04:57] LABS: BUN 16 mg/dL (7-18); CALCIUM 8.3 mg/dL (8.5-10.1); CHLORIDE 98 mmol/L (98-107); CREATININE 0.5 mg/dL (0.7-1.3); GLUCOSE 131 mg/dL (74-106); POTASSIUM 4.3 mmol/L (3.5-5.1); SODIUM 139 mmol/L (136-145)
[2017-03-28 05:02] LABS: CO2 > 45 mmol/L (21-32)
[2017-03-28 05:05] LABS: MANUAL DIFF YES
[2017-03-28 05:28] LABS: ABG SAMPLE TYPE ARTERIAL; BE(vivo) 14.9 mmol/L (-2 to +3); HCO3 44.3 mmol/L (22.0-26.0); LACTATE 0.85 mmol/L (0.5-2.0); O2(CT) 19.9 mL/dL (15.0-23.0); O2Hb 95.2 % (92.0-98.0); PO2 87.2 mmHg (80.0-100.0); pH 7.376 (7.360-7.450); tCO2 46.7 mmol/L (24.0-30.0)
[2017-03-28 05:29] LABS: PCO2 77.4 mmHg (35.0-45.0); STICK SITE R.BRACHIAL
[2017-03-28 05:30] LABS: Pressure Support 10 cm H20
[2017-03-28 09:29] LABS: ABSOLUTE NEUTROPHILS 13.6 thou/uL (1.4-8.2); METAMYELOCYTES 1 %; TOTAL CELL COUNT 100
[2017-03-29 05:31] LABS: HEMATOCRIT 43.1 % (42.0-52.0); HEMOGLOBIN 13.9 gm/dL (14.0-18.0); MCH 29.5 pg (26.0-34.0); MCHC 32.3 g/dL (28.0-37.0); MCV 91.3 fL (80.0-100.0); PLATELET COUNT 285 thou/uL (150-400); RBC 4.72 mil/uL (4.50-6.00); RDW 13.3 % (10.5-14.5); WBC 17.3 thou/uL (4.0-11.0)
[2017-03-29 05:43] LABS: MANUAL DIFF YES
[2017-03-29 05:53] LABS: BUN 16 mg/dL (7-18); CALCIUM 8.3 mg/dL (8.5-10.1); CHLORIDE 96 mmol/L (98-107); CREATININE 0.5 mg/dL (0.7-1.3); GLUCOSE 135 mg/dL (74-106); POTASSIUM 4.3 mmol/L (3.5-5.1); SODIUM 139 mmol/L (136-145)
[2017-03-29 05:56] LABS: CO2 > 45 mmol/L (21-32)
[2017-03-29 08:30] LABS: ABSOLUTE NEUTROPHILS 16.6 thou/uL (1.4-8.2); PLATELET ESTIMATE NORMAL; TOTAL CELL COUNT 100
[2017-03-29 10:43] LABS: ALBUMIN 1.8 g/dL (3.4-5.0); ALKALINE PHOSPHATASE 47 U/L (46-116); BUN 18 mg/dL (7-18); CALCIUM 8.4 mg/dL (8.5-10.1); CHLORIDE 97 mmol/L (98-107); CREATININE 0.5 mg/dL (0.7-1.3); GLUCOSE 149 mg/dL (74-106); POTASSIUM 4.5 mmol/L (3.5-5.1); SGOT 28 U/L (15-37); SGPT 36 U/L (30-65); SODIUM 137 mmol/L (136-145); TOTAL BILIRUBIN 0.3 mg/dL (<0.1-1.0); TOTAL PROTEIN 5.3 g/dL (6.4-8.2)
[2017-03-29 10:46] LABS: CO2 > 45 mmol/L (21-32)
[2017-03-29 11:16] LABS: ABG SAMPLE TYPE ARTERIAL; BE(vivo) 15.7 mmol/L (-2 to +3); LACTATE 0.67 mmol/L (0.5-2.0); O2(CT) 20.8 mL/dL (15.0-23.0); O2Hb 95.4 % (92.0-98.0); pH 7.294 (7.360-7.450); sO2 95.8 % (92.0-98.0); tCO2 51.1 mmol/L (24.0-30.0)
[2017-03-29 11:17] LABS: PCO2 101.2 mmHg (35.0-45.0); STICK SITE R.RADIAL
[2017-03-30] VITALS (12 sets, daily range): BP systolic 95–133; BP diastolic 55–77
[2017-03-31 04:10] VITALS: BP 105/63
[2017-03-31 06:00] LABS: HEMOGLOBIN 13.2 gm/dL (14.0-18.0); MCH 29.6 pg (26.0-34.0); MCHC 32.9 g/dL (28.0-37.0); MCV 89.9 fL (80.0-100.0); PLATELET COUNT 264 thou/uL (150-400); RBC 4.44 mil/uL (4.50-6.00); RDW 13.8 % (10.5-14.5); WBC 19.1 thou/uL (4.0-11.0)
[2017-03-31 06:03] LABS: MANUAL DIFF YES
[2017-03-31 07:48] VITALS: BP 123/75
[2017-03-31 08:39] LABS: ABSOLUTE NEUTROPHILS 17.2 thou/uL (1.4-8.2); PLATELET ESTIMATE NORMAL; TOTAL CELL COUNT 100
[2017-03-31] MEDS ORDERED: DIPHENHYDR50 MG/1 M1 IV (09:02)
[2017-03-31] MEDS ORDERED: AUGMENTIN 875-1 EACH PO (09:02)
[2017-03-31] MEDS ORDERED: VISTARIL 25 MG25 M1 PO (09:03)
[2017-03-31] MEDS ORDERED: HYDROCODON-ACE1 EAC7 PO (09:03)
[2017-03-31] MEDS ORDERED: ENOXAPARIN40 MG/0.1 SUBQ (09:03)
[2017-03-31] MEDS ORDERED: ACCUNEB SO1.25 MG/1 INH (09:03)
[2017-03-31] MEDS ORDERED: DUONEB 2.5-0.5 M3 ML INH (09:03)
[2017-03-31] MEDS ORDERED: FLOMAX0.4 MG PO (09:03)
[2017-03-31] MEDS ORDERED: PEPCID20 MG PO (09:04)
[2017-03-31] MEDS ORDERED: PULMICORT0.5 MG/21 INH (09:04)
[2017-03-31] MEDS ORDERED: SOLU-MEDRO40 MG/1 M2 IV PUSH (09:04)
[2017-03-31] MEDS ORDERED: ACETYLCYST200 MG/1 M INH (09:04)
[2017-03-31 12:45] VITALS: BP 129/70
== END 2017-03-31 13:44 | DRG 853 ==
LOC: ICU 18:40 → 2N 19:04 → ICU 19:04 → TBA 19:04 → ICU 21:32 → 3N 03-19 14:49 → 4S 03-25 17:37 → 4W 03-26 08:54 → ICU 03-26 19:47 → 2N 03-30 15:45
PROVIDERS: Hospitalist; Internal Medicine; Internal Medicine Endocrinology, Diabetes & Metabolism; Internal Medicine Pulmonary Disease; Nurse Practitioner Acute Care; Specialist; Surgery
PROC: 0WQF0ZZ Repair Abdominal Wall, Open Approach (ICD-10-PCS; principal; 2017-03-16)
PROC: 0DN80ZZ Release Small Intestine, Open Approach (ICD-10-PCS; principal; 2017-03-16)
PROC: 0BH17EZ Insertion of Endotracheal Airway into Trachea, Via Natural or Artificial Opening (ICD-10-PCS; 2017-03-16)
PROC: 5A1945Z Respiratory Ventilation, 24-96 Consecutive Hours (ICD-10-PCS; 2017-03-16)
PROC: 5A09557 Assistance with Respiratory Ventilation, Greater than 96 Consecutive Hours, Continuous Positive Airway Pressure (ICD-10-PCS; 2017-03-26)
DX: A41.9 Sepsis, unspecified organism (principal); K65.9 Peritonitis, unspecified; J18.9 Pneumonia, unspecified organism; J96.21 Acute and chronic respiratory failure with hypoxia; J44.0 Chronic obstructive pulmonary disease with (acute) lower respiratory infection; K56.7 Ileus, unspecified; K55.9 Vascular disorder of intestine, unspecified; K56.5 Intestinal adhesions [bands] with obstruction (postinfection); N13.8 Other obstructive and reflux uropathy; K42.0 Umbilical hernia with obstruction, without gangrene; I95.9 Hypotension, unspecified; Z96.649 Presence of unspecified artificial hip joint; F41.9 Anxiety disorder, unspecified; F17.210 Nicotine dependence, cigarettes, uncomplicated; I25.10 Atherosclerotic heart disease of native coronary artery without angina pectoris; R73.9 Hyperglycemia, unspecified; I10 Essential (primary) hypertension; E78.5 Hyperlipidemia, unspecified; N40.1 Benign prostatic hyperplasia with lower urinary tract symptoms; E78.00 Pure hypercholesterolemia, unspecified; I25.2 Old myocardial infarction; Z98.61 Coronary angioplasty status
CPT/HCPCS: 10078; 10081; 10102; 10795; 50101; 50331; 50386; 50455; 50612; 50953; 51412; 56525; 56527; 56530; 57092; 62110; 62900; 65002

== ENCOUNTER 2017-03-31 10:56 | Inpatient (IN) | payer OTHER ==
[~2017-03-31] VITALS: Ht 180.3 cm; Wt 72.9 kg
--- NOTE | ~2017-03-31 | PLAN ---
[facility] [place] [address] REHAB UNIT PLAN OF CARE Name: KEISHA BRITT Room #: 505-P ADM IN M.R.#: [id number] Admission: 03/31/17 Attend Phys: Hero Dillard MD Discharge: Date of : 39 Report #: [id number] THIS REPORT FOR: //name// CC: Hero Valerio DATE OF SERVICE: 04/02/2017 The patient is seen back today in followup. He is in no distress. Last recorded temperature 98.2, pulse 106, respirations 22, blood pressure 110/61. The patient is alert. He is pleasant, in no distress. He is on nasal prong O2. He has been working in therapies with transfers, contact guard, gait contact guard 100 feet with a front-wheeled walker. In occupational therapy, upper body dressing is min assist with lower body dressing, max assist. In speech therapy, he has functional comprehension and is on a mechanical soft diet with thin liquids. ASSESSMENT: 1. Pulmonary rehabilitation. 2. Medical complexity with generalized debilitation. 3. Acute on chronic respiratory failure. 4. Ischemic small bowel from adhesions, status post surgical release. 5. Ileus. 6. Coronary artery disease with prior stenting. 7. Pneumonitis. PLAN: The overall plan of care is based on the preadmission screen, post-admission physician evaluation and information garnered from therapy assessments. 1. Estimated length of stay is probably at least 10-14 days pending progress. 2. Medical prognosis is reasonably good. 3. Anticipated interventions includes the interdisciplinary acute inpatient rehabilitation program with PT, OT, rehab nursing assisting regarding medication management, skin care prophylaxis, bowel and bladder issues and nursing education. Speech therapy is involved as well. The interdisciplinary rehabilitation team with consulting physicians and case management are all involved. 4. Anticipated functional outcomes would be for the patient to become modified independent with transfers, mobility issues, ADLs, so that he can hopefully return back to his prior living situation. Speech therapy is also further assessing regarding his cognition. 5. Discharge destination would be back home, where he lives with his . 6. Expected therapy by discipline includes PT and OT 1 to 1-1/2 hours per day [address] [address] REHAB UNIT PLAN OF CARE Name: KEISHA BRITT Room #: 505-P [facility] IN [facility]#: [id number] Admission: 03/31/17 Attend Phys: Hero Dillard MD Discharge: Date of : 39 Report #: [id number] each five days a week with speech 1/2-1 hour per day, 5 days a week, all throughout the inpatient rehabilitation stay. <ELECTRONICALLY SIGNED> By: Hero Dillard MD 04/07/17 1006 1022 1551 Hero Dillard MD /PMT
--- NOTE | ~2017-03-31 | H ---
[facility] [place] [address] HISTORY AND PHYSICAL Name: KEISHA BRITT Room #: 505-P ADM IN M.R.#: [id number] Admission: 03/31/17 Attend Phys: Hero Dillard MD Discharge: Date of : 39 Report #: [id number] THIS REPORT FOR: //name// CC: Hero Valerio DATE OF SERVICE: 03/31/2017 HISTORY AND PHYSICAL/POST-ADMISSION PHYSICIAN EVALUATION HISTORY OF PRESENT ILLNESS: The patient is a 76-year-old white male originally admitted to [facility] with abdominal pain, abdominal sepsis, underwent exploratory laparotomy with release of an adhesion for small-bowel obstruction. There was note of an ischemic bowel with release of the adhesion with improvement. His course was complicated by acute on chronic respiratory failure. He had hypercapnia pneumonia on O2. He was gradually doing better from a pulmonary perspective. He has been on BiPAP at bedtime with nasal prong O2 during the day. He warrants pulmonary rehabilitation and has the multiple consultants that are following. He has now been admitted for acute in-hospital inpatient rehabilitation. His pneumonia is improving. Leukocytosis thought to be maybe related to the steroids and will need to be followed as this is tapered. PAST MEDICAL HISTORY: Includes COPD, coronary artery disease status post stenting, prior [place], history of hypertension, anxiety. PAST SURGICAL HISTORY: Coronary stenting in 2006 and a hip replacement. ALLERGIES: No known drug allergies. MEDICATIONS: Please see the full medication listing. Each of these was individually reconciled, on admission includes vitamins, herbals and supplements. HABITS: Tobacco 6-7 cigarettes per day smoking about 50 years. Drinks wine on a weekly basis. SOCIAL HISTORY: Lives at home with his . This is a house with 3 steps in, 12 inside. He did not utilize gait aids premorbidly. FAMILY HISTORY: Noncontributory. REVIEW OF SYSTEMS: No complaints of chest pain, shortness of breath, abdominal discomfort. No focal extremity pain complaints. PHYSICAL EXAMINATION: [facility] [address] [place] [address] HISTORY AND PHYSICAL Name: KEISHA BRITT Room #: 505-P [facility] IN [facility].#: [id number] Admission: 03/31/17 Attend Phys: Hero Dillard MD Discharge: Date of : 39 Report #: [id number] GENERAL: The patient is a pleasant 76-year-old white male in no obvious distress. The patient was sleepy but was able to be aroused. Seen earlier today. VITAL SIGNS: Last recorded temperature is 98.3, pulse 89, respirations 18, blood pressure 144/79. He was on nasal prong O2. HEENT: Facies were symmetric. HEENT appeared to be benign. Cranial nerves are grossly intact. CHEST: Some decreased breath sounds throughout. CARDIOVASCULAR: Regular rate and rhythm. ABDOMEN: Bowel sounds positive, nontender. GENITOURINARY AND RECTAL: Deferred. EXTREMITIES: He has functional range of motion of both upper extremities with strength grade 4-/5. DTRs are trace to 1. Lower extremities, no focal calf swelling, functional range of motion with strength grade 4-/5. DTRs are trace to 1. No focal calf swelling. No significant distal lower extremity edema. He has been transferring with min assist and was ambulating just a short distance with min assist. He has been on 3-4 liters of nasal cannula O2. ASSESSMENT: A 76-year-old white male with the following problem list: 1. Pulmonary rehabilitation. 2. Medical complexity with generalized debilitation. 3. Acute on chronic respiratory failure. 4. Ischemic small bowel from adhesions, status post-surgical release. 5. Ileus. 6. Coronary artery disease with prior stenting. 7. Pneumonitis. PLAN: The patient is admitted for acute in-hospital inpatient rehabilitation. From a post-admission physician evaluation perspective, there are no relevant changes since the preadmission screening. Please see the above review of prior and current medical and functional conditions and comorbidities. Please see the patient's previous and current functional status. As far as risk of complications, the patient has multiple medical comorbidities as noted above. Initial plan of care involves the interdisciplinary acute inpatient rehabilitation program with the goal of maximizing the patient's functional independence, so that he can hopefully return back to his prior living situation. Measurable functional goals would be for him to become modified independent with transfers, mobility and ADLs and to improve his overall endurance well as decrease his O2 requirements. Prognosis is reasonably good with estimated length of stay probably at least 10-14 days. Potential barriers would include the multiple medical comorbidities and decreased functional status. The patient meets diagnostic criteria for an acute in-hospital inpatient rehabilitation stay. He meets medical necessity criteria and we will have the multiple consultants continue to follow, which include Pulmonary Medicine, Infectious Disease, Surgery as well as Internal Medicine. He does [address] [address] HISTORY AND PHYSICAL Name: LORENZAKEISHA Room #: 505-P [facility] IN M.R.#: [id number] Admission: 03/31/17 Attend Phys: Hero Dillard MD Discharge: Date of : 39 Report #: [id number] have the tolerance for an acute inpatient rehabilitation stay and has appropriate discharge goals back to the home setting. <ELECTRONICALLY SIGNED> By: Hero Dillard MD 04/07/17 1006 1039 1127 Hero Dillard MD /[facility]
--- NOTE | ~2017-03-31 | HC ---
[facility] [place] [address] CONSULTATION Name: KEISHA BRITT Room #: 501-A [facility] IN ..#: [id number] Admission: 03/31/17 Attend Phys: Hero Dillard MD Discharge: 04/09/17 Date of : 39 Report #: [id number] THIS REPORT FOR: //name// CC: Hero Valerio DATE OF SERVICE: 04/03/2017 NEUROPSYCHOLOGICAL CONSULTATION DATE OF SERVICE: 04/03/2017 ATTENDING PHYSICIAN: Hero Dillard M.D. ROOM SERVICE WAITER/WAITRESS: Mp Licona, PhD CLINICAL PRESENTATION: The patient is a 76-year-old male admitted to the [facility] rehabilitation unit for comprehensive inpatient rehabilitation program to improve functional mobility and activities of daily living and self-care secondary to medical complexity and generalized debilitation. His diagnoses include lgjwh-lz-keliogw respiratory failure, ischemic small bowel from adhesions, status post surgical release, ileus, coronary artery disease with prior stenting and pneumonitis. The patient reports being at his home when he noticed deterioration in his functioning. He reports having called his and then his picking him up and bringing him to the Emergency Room for evaluation. A complete description of his medical condition and history can be found in his medical record. Neuropsychological consultation was requested to provide assistance in the assessment of cognitive and emotional status and to provide recommendations and services. Prior to this most recent event, he was living independently in his own home. He reports being independent with instrumental activities of daily living. 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 He is a college graduate. The patient is with 2 children. He does not report a prior history of treatment for anxiety or depression. There is also no reported treatment for alcohol or drug abuse. TECHNIQUES UTILIZED: Clinical interview, review of medical records, staff consultation and behavioral observation, mini mental status exam 2 standard version, calibrated ideational fluency assessment (letter and category), and clock drawing. EXAMINATION FINDINGS: The patient was alert and cooperative with the assessment. There is no evidence of aphasia. He does not report auditory or [facility] [address] [place] [address] CONSULTATION Name: KEISHA BRITT Room #: 501-[facility] IN ..#: [id number] Admission: 03/31/17 Attend Phys: Hero Dillard MD Discharge: 04/09/17 Date of : 39 Report #: [id number] visual hallucinations. The patient's mood became irritable with increasing challenge. He has decreased insight into the severity of cognitive deficits. The patient also is lacking some insight into the purpose of cognitive rehabilitation. He does report increased anxiety, reduced appetite and fatigue. His endurance is described as very poor. His performance on the MMSE 2 brief version is in the mild range of impairment with a raw score of 13 of 16 and a T score of 35. The patient was 3/3 for initial registration, 5/5 for orientation to time and 5/[address]. He was 0/3 for immediate recall of 3 items after a brief time delay and distraction. His performance on the MMSE 2 standard version is within normal limits with a raw score of 26 of 30 and T score of 43. He was 4/5 for serial sevens, 2/2 for naming, 1/1 for repetition. He was 3/3 for auditory comprehension, reading and following a single command, writing a sentence and being able to copy a simple geometric design. The patient was unable to set the hands of a clock at a designated time. He was able construct a clock and place numbers, but concept of hand placement was impaired. Letter fluency was extremely low with a raw score of 4 and percentile rank of less than 1. Category fluency was within normal limits with a raw score of 40 and a T score of 52. Total fluency was in the borderline range with a raw score of 44 and a T score of 34, which is at the 5th percentile. The patient is presenting with severe impairment in letter fluency in comparison to category fluency. Suggested are deficits in frontal lobe/executive functioning with impaired thought organization, planning and problem solving. The patient also acknowledges increased irritability and less patience. DIAGNOSTIC IMPRESSION: 1. Neurocognitive disorder, unspecified, with intermittent irritability and reduced frustration tolerance -- extent to be determined, likely in the mild to moderate range. 2. Adjustment disorder with anxious mood. RECOMMENDATIONS: The patient will benefit from strategies to assist in the management of his mood. He acknowledges intermittent irritability. I discussed with him a stress management techniques of guided imagry, breathing and distraction. Followup Neuropsych assessment would be of benefit to clarify the [address] [address] CONSULTATION Name: KEISHA BRITT Room #: 501-A [facility] IN .R.#: [id number] Admission: 03/31/17 Attend Phys: Hero Dillard MD Discharge: 04/09/17 Date of : 39 Report #: [id number] severity of cognitive deficits as he recovers and returns home. At this time, assistance with planning, problem solving and help with managing irritability and agitation will be necessary. Thank you very much for allowing me to provide the consultation on this patient. <ELECTRONICALLY SIGNED> By: Mp Licona, PhD 04/11/17 1505 1427 1513 Mp Licona, PhD /nt
[~2017-03-31 10:56] MED LIST: ACCUNEB SO1.25 MG/1 INH; ACETYLCYST200 MG/1 M INH; AUGMENTIN 875-1 EACH PO; DIPHENHYDR50 MG/1 M1 IV; DUONEB 2.5-0.5 M3 ML INH; ENOXAPARIN40 MG/0.1 SUBQ; FLOMAX0.4 MG PO; HYDROCODON-ACE1 EAC7 PO; PEPCID20 MG PO; PULMICORT0.5 MG/21 INH; SOLU-MEDRO40 MG/1 M2 IV PUSH; VISTARIL 25 MG25 M1 PO
[2017-03-31 19:44] VITALS: BP 144/79
[2017-04-01 04:51] LABS: HEMATOCRIT 42.3 % (42.0-52.0); HEMOGLOBIN 13.7 gm/dL (14.0-18.0); MCH 29.2 pg (26.0-34.0); MCHC 32.4 g/dL (28.0-37.0); MCV 90.1 fL (80.0-100.0); RBC 4.69 mil/uL (4.50-6.00); RDW 13.7 % (10.5-14.5); WBC 16.4 thou/uL (4.0-11.0)
[2017-04-01 05:01] LABS: ANION GAP < 0 mmol/L (7-16); BUN 15 mg/dL (7-18); CALCIUM 8.4 mg/dL (8.5-10.1); CHLORIDE 95 mmol/L (98-107); CO2 39 mmol/L (21-32); CREATININE 0.5 mg/dL (0.7-1.3); GLUCOSE 99 mg/dL (74-106); POTASSIUM 4.3 mmol/L (3.5-5.1); SODIUM 132 mmol/L (136-145)
[2017-04-01 20:39] VITALS: BP 106/77; BP 167/61
[2017-04-02 08:00] VITALS: BP 110/61
[2017-04-02 20:27] VITALS: BP 104/47
[2017-04-03 08:00] VITALS: BP 124/53
[2017-04-03 19:30] VITALS: BP 126/60
[2017-04-04 07:35] VITALS: BP 102/58
[2017-04-04 20:00] VITALS: BP 108/60
[2017-04-05 08:00] VITALS: BP 112/55
[2017-04-06 03:37] VITALS: BP 105/57
[2017-04-06 06:36] LABS: HEMATOCRIT 39.1 % (42.0-52.0); HEMOGLOBIN 13.2 gm/dL (14.0-18.0); MANUAL DIFF YES; MCH 30.4 pg (26.0-34.0); MCHC 33.7 g/dL (28.0-37.0); MCV 90.3 fL (80.0-100.0); PLATELET COUNT 308 thou/uL (150-400); RBC 4.33 mil/uL (4.50-6.00); RDW 13.4 % (10.5-14.5); WBC 10.3 thou/uL (4.0-11.0)
[2017-04-06 06:55] LABS: ANION GAP < 0 mmol/L (7-16); BUN 12 mg/dL (7-18); CALCIUM 8.7 mg/dL (8.5-10.1); CHLORIDE 96 mmol/L (98-107); CO2 40 mmol/L (21-32); CREATININE 0.4 mg/dL (0.7-1.3); GLUCOSE 85 mg/dL (74-106); MAGNESIUM 1.7 mg/dL (1.8-2.4); SODIUM 133 mmol/L (136-145)
[2017-04-06 08:00] VITALS: BP 100/59
[2017-04-06 08:40] LABS: ABSOLUTE NEUTROPHILS 7.2 thou/uL (1.4-8.2); TOTAL CELL COUNT 100
[2017-04-06 08:41] LABS: ANISOCYTOSIS SLIGHT
[2017-04-06 20:00] VITALS: BP 130/67
[2017-04-07 06:47] LABS: ABG SAMPLE TYPE ARTERIAL; BE(vivo) 11.6 mmol/L (-2 to +3); HCO3 40.4 mmol/L (22.0-26.0); LACTATE 1.18 mmol/L (0.5-2.0); O2(CT) 18.7 mL/dL (15.0-23.0); PO2 75.9 mmHg (80.0-100.0); pH 7.361 (7.360-7.450); sO2 94.1 % (92.0-98.0); tCO2 42.6 mmol/L (24.0-30.0)
[2017-04-07 06:48] LABS: PCO2 72.9 mmHg (35.0-45.0); STICK SITE L.BRACHIAL
[2017-04-07 08:00] VITALS: BP 131/65
[2017-04-07 20:30] VITALS: BP 127/80
[2017-04-08 07:33] VITALS: BP 124/77
[2017-04-08] MEDS ORDERED: PULMICORT0.5 MG/21 INH (09:31)
[2017-04-08] MEDS ORDERED: FLOMAX0.4 MG PO (09:31)
[2017-04-08] MEDS ORDERED: MIRALAX17 GM PO (09:31)
[2017-04-08] MEDS ORDERED: NYAMYC15 GM TOP (09:31)
[2017-04-08] MEDS ORDERED: COLACE100 MG PO (09:31)
[2017-04-08 12:46] VITALS: BP 124/77
[2017-04-08] MEDS ORDERED: ASPIR 8181 MG PO (13:27)
[2017-04-08 20:12] VITALS: BP 120/65
[2017-04-09] MEDS ORDERED: DUONEB 2.5-0.5 M3 ML INH (07:35)
[2017-04-09] MEDS ORDERED: VENTOLIN HFA 1818 GM INH (07:38)
[2017-04-09] MEDS ORDERED: PREDNISONE 5 MG5 M1 PO (07:40)
[2017-04-09 08:00] VITALS: BP 111/67
[2017-04-09 12:58] VITALS: BP 124/77
[2017-04-09 14:00] VITALS: BP 124/77
== END 2017-04-09 14:50 | disposition home health service (06) | DRG 947 ==
LOC: ENTRNSPT 04-02 14:38 → EDTRNSPTSTS 04-02 14:40
PROVIDERS: Internal Medicine Pulmonary Disease; Nurse Practitioner; Physical Medicine & Rehabilitation
PROC: 5A09357 Assistance with Respiratory Ventilation, Less than 24 Consecutive Hours, Continuous Positive Airway Pressure (ICD-10-PCS; principal; 2017-04-06)
DX: R53.81 Other malaise (principal); J18.9 Pneumonia, unspecified organism; K65.9 Peritonitis, unspecified; J96.21 Acute and chronic respiratory failure with hypoxia; J96.22 Acute and chronic respiratory failure with hypercapnia; K56.7 Ileus, unspecified; K66.0 Peritoneal adhesions (postprocedural) (postinfection); I25.10 Atherosclerotic heart disease of native coronary artery without angina pectoris; G31.84 Mild cognitive impairment of uncertain or unknown etiology; F43.20 Adjustment disorder, unspecified; J44.9 Chronic obstructive pulmonary disease, unspecified; I10 Essential (primary) hypertension; F41.9 Anxiety disorder, unspecified; Z96.649 Presence of unspecified artificial hip joint; F17.210 Nicotine dependence, cigarettes, uncomplicated; E83.42 Hypomagnesemia; I25.2 Old myocardial infarction; Z95.5 Presence of coronary angioplasty implant and graft; Z79.899 Other long term (current) drug therapy
CPT/HCPCS: 10112

== ENCOUNTER 2019-02-21 14:42 | Inpatient (IN) | payer OTHER ==
[2019-02-21] VITALS (8 sets, daily range): BP systolic 92–108; BP diastolic 60–72
[~2019-02-21] VITALS: Ht 180.3 cm; Wt 73.8 kg
[~2019-02-21 14:42] MED LIST changes: +ASPIR 8181 MG PO; +COLACE100 MG PO; +MIRALAX17 GM PO; +NYAMYC15 GM TOP; +PREDNISONE 5 MG5 M1 PO; +VENTOLIN HFA 1818 GM INH
--- NOTE | 2019-02-21 14:47 | NUR ---
PT ORIENTED TO ROOM AND UNIT, BED LOW AND LOCKED, SIDE RAILS UPX3, CALL LIGHTIN REACH. RIGHT NARE NGT IN PLACE. CONTACT DR. SWANN AND SURGERY TO INFORM THAT PT HAS ARRIVED TO UNIT. WILL CONTINUE TO ASSESS.
[2019-02-21] MEDS ORDERED: COZAAR 25 MG TA25 M1 PO (15:29)
[2019-02-21] MEDS ORDERED: BEVESPI AEROS10.7 GM INH (15:30)
[2019-02-21] MEDS ORDERED: BYSTOLIC 5 MG5 MG PO (15:31)
[2019-02-21] MEDS ORDERED: VENTOLIN HFA 1818 GM INH (15:32)
[2019-02-21] MEDS ORDERED: ZOCOR 20 MG TAB20 M1 PO (15:33)
--- NOTE | 2019-02-21 16:26 | NUR ---
NGT RIGHT NARE TO DEANNA.
--- NOTE | 2019-02-21 17:25 | NUR ---
REPORT CALLED TO PREOP.
--- NOTE | 2019-02-21 17:59 | NUR ---
PT OFF UNIT TO OR.
[2019-02-22] VITALS (7 sets, daily range): BP systolic 94–112; BP diastolic 58–84
[2019-02-22] MEDS ORDERED: PREDNISONE 10 M10 MG PO (03:36)
--- NOTE | 2019-02-22 05:49 | NUR ---
Arrived from surgery around 2034 on a BIPAP at 35%. Maintaining O2 sat in the mid to upper 90's. Taken off BIPAP for few minutes when he c/o being nauseous. Shortness of breath with exertion. Pain med given with some relief.Zofran given with some relief. Abdominal incision with chelita. Abdominal dressing soaked with serosanguinous dge. Dressing changed. Pt. has not voided by MN. Bladder scanned and reads >700. Pt. able to void 150 ml. Refused to be straight cathed and requested to give him more time. He was able to void another 200 ml per urinal. SCD's in place. Able to take few sips of water. IV fluids infusing.He slept intermittently during the night. Will continue to monitor.
[2019-02-22 06:20] LABS: HEMOGLOBIN 12.2 gm/dL (14.0-18.0); MCH 30.1 pg (26.0-34.0); MCHC 33.9 g/dL (28.0-37.0); MCV 88.8 fL (80.0-100.0); RBC 4.05 mil/uL (4.50-6.00); RDW 16.3 % (10.5-14.5); WBC 6.3 thou/uL (4.0-11.0)
[2019-02-22 06:34] LABS: ALBUMIN 3.1 g/dL (3.4-5.0); CALCIUM 8.8 mg/dL (8.5-10.1); CREATININE 1.2 mg/dL (0.7-1.3); MAGNESIUM 1.6 mg/dL (1.8-2.4); POTASSIUM 3.4 mmol/L (3.5-5.1); TOTAL BILIRUBIN 0.6 mg/dL (<0.1-1.0); TOTAL PROTEIN 6.2 g/dL (6.4-8.2)
--- NOTE | 2019-02-22 11:12 | NUR ---
PT OFF BIPAP AT THIS TIME AND IS NOW ON RA.
--- NOTE | 2019-02-22 15:03 | NUR ---
ASSESSMENT: CM REVIEWED CHART AND MET WITH PATIENT AT THE BEDSIDE ALONG WITH HIS . PT REPORTS THAT THEY LIVE IN A HOUSE. PT REPORTS 12 STEPS WITH HANDRAILS TO ENTER AND NO MORE STEPS ONCE INSIDE. PT REPORTS AMBULATION INDEPENDENTLY. PT REPORTS BEING ON 3L OXYGEN AT HOME AND GETS IT THROUGH [facility]. PT REPORS THAT HE HAS A GRAB BAR IN THE SHOWER AND A SHOWER CHAIR. PT STATES HE HAS HAD [facility] IN THE PAST ABOUT 2 YEARS AGO AND ALSO HAD BEEN TO [facility] IN THE PAST. PT/OT ORDERED TO SEE PATIENT. CM WILL CONTINUE TO FOLLOW TO ASSIST NEEDED.
--- NOTE | 2019-02-22 17:10 | NUR ---
PLACE PT BACK ON BIPAP. PT STATED HE FELT LIKE HE WAS GETTING A LITTLE WORN OUT. WILL CNTINUE TO ASSESS.
[2019-02-23 04:42] VITALS: BP 103/60
--- NOTE | 2019-02-23 07:45 | NUR ---
PT OFF AND ON BIPAP THROUGH OUT SHIFT, WHEN PT IS OFF HE IS AT 3L NC. ORAL PAIN MEDICATION GIVEN 1X FOR PAIN LEVEL OF 3. PT ALSO HAD SOME NAUSEA, AND ZOFRAN GIVEN WITH SUCCESS. FOLLOWING POC WITH IVF. VSS AND HOURLY ROUNDING.
[2019-02-23 08:03] VITALS: BP 115/67
[2019-02-23 09:57] LABS: HEMATOCRIT 36.2 % (42.0-52.0); HEMOGLOBIN 11.9 gm/dL (14.0-18.0); MCH 29.3 pg (26.0-34.0); MCHC 32.9 g/dL (28.0-37.0); MCV 88.9 fL (80.0-100.0); RBC 4.07 mil/uL (4.50-6.00); WBC 6.6 thou/uL (4.0-11.0)
[2019-02-23 10:08] LABS: CALCIUM 8.7 mg/dL (8.5-10.1); CREATININE 0.9 mg/dL (0.7-1.3); POTASSIUM 3.3 mmol/L (3.5-5.1)
[2019-02-23 15:58] VITALS: BP 113/61
--- NOTE | 2019-02-23 16:07 | NUR ---
PATIENT UP WITH STANDBY ASSIST, WORKED WITH PT & OT THIS SHIFT. MIDLINE INCISION SITE DRESSING REMAINS C/D/I. PATIENT VOIDING VIA URINAL. URINE IS DARK SE. HAS ONLY VOIDED 200ML OF NOW THIS SHIFT. SCANNED BLADDER, PATIENT REFUSING STRAIGHT CATH. EDUCATED PATIENT. PATIENT REFUSING MOST FLUIDS EXCEPT WATER. OFFERED SEVERAL CHOICES TO ATTEMPT TO FIND ITEMS HE ENJOYS. PATIENT ONLY CONSUMED 50% OF SUPPLEMENT AT LUNCH. PATIENT SLOWLY PROGRESSING TOWARDS GOALS FOR DC.
[2019-02-23 19:52] VITALS: BP 121/61
[2019-02-24] VITALS (37 sets, daily range): BP systolic 60–119; BP diastolic 21–71
--- NOTE | 2019-02-24 04:22 | NUR ---
PATIENT IS ALERT AND ORIENTED. PATIENT IS SBA. PATIENT ABDOMINAL IS DISTENDED. HYPOACTIVE BOWELS. STOOL SOFTENER GIVEN. PATIENT AMBLUATED. PATIENT DENIES PAIN. PATIENT ENCOURAGED TO DRINK CLEARS. PATIENT VOIDS PER URINAL. PATIENT IS ON 4LNC. PATIENT IS ON CPAP HS. PATIENT IS RESTING COMFORTABLY. NOT PASSING GAS AT THIS TIME. PATIENT IS NOT PROGRESSING TO GOALS.WCM.
--- NOTE | 2019-02-24 09:45 | NUR ---
ON-GOING ASSESSMENT: CM REVIEWED CHART AND MET WITH PATIENT AT THE BEDSIDE. CM DISCUSSED POSSIBLE HH VS ACUTE REHAB. PT STATING HE WANTS TO GO HOME WITH HOME HEALTH AND IS NOT INTERESTED IN ACUTE REHAB AT THIS TIME. CM DISCUSSED DIFFERENT HH OPTIONS AND PT HAS NO PREFERENCE STATING HE IS OK WITH A REFERRAL TO [facility]. CM NOTIFIED [facility]. CM WILL CONTINUE TO FOLLOW TO ASSIST NEEDED.
[2019-02-24 10:07] LABS: CALCIUM 8.7 mg/dL (8.5-10.1); CREATININE 0.9 mg/dL (0.7-1.3); MAGNESIUM 2.1 mg/dL (1.8-2.4); POTASSIUM 4.1 mmol/L (3.5-5.1)
[2019-02-24 12:23] LABS: BE(vivo) 4.8 mmol/L (-2 to +3); HCO3 34.6 mmol/L (22.0-26.0); PO2 81.8 mmHg (80.0-100.0); sO2 93.7 % (92.0-98.0)
[2019-02-24 12:26] LABS: PCO2 81.1 mmHg (35.0-45.0); pH 7.248 (7.360-7.450)
--- NOTE | 2019-02-24 14:17 | NUR ---
PATIENT WAS PLANNING FOR RETURNING HOME WITH HOME HEALTH CARE AT DISCHARGE. THIS DATE PATIENT WAS SENT TO ICU FOR RESPIRATORY FAILURE. WILL CONTINUE TO FOLLOW FOR POSSIBLE NEED FOR ACUTE REHAB PRIOR AT DISCHARGE.
--- NOTE | 2019-02-24 15:08 | NUR ---
AM NOTE: DURING REPORT THIS MORNING PT WAS ON 3L NC SITTING ON SIDE OF BED, PT SPO2 MONITOR ALARMING, PT SPO2 84%. PT ASYMPTOMATIC, GOOD COLOR. PT ATTEMPTED TO BREATHE DEEP AND WAITED A MINUTE FOR SPO2 TO RECOVER, PT SPO2 STILL 84% AFTER A MINUTE OR TWO, BIPAP PLACED. PT STATED HE DID NOT LIKE BIPAP D/T WARMER, RT TURNED WARMER OFF. PT STAYED ON BIPAP UNTIL OT CAME TO WORK WITH PT. PT PLACED ON NC AGAIN OT HAD PT STANDING AT SIDE OF BED, PT SPO2 IN THE LOW 80S, PT WAS SYMPTOMATIC THIS TIME, SOB, PALE, DIZZY, PLACED BACK ON BIPAP. PT THEN REMAINED ON BIPAP. PT SPO2 MONITOR ALARMING TWICE, PT HAD TAKEN APART BIPAP MASK AND SPO2 DROPPED IN THE HIGH 60S. PT PALE, SOB, STATES HE FEELS LIKE HE IS HAVING MUCH MORE DIFFICULTY BREATHING TODAY. PAGED DR LOVE, ORDER FOR CHEST XRAY, ABG, PULM CONSULT AND TRANSFER TO ICU RECEIVED. SPOKE WITH PT AND REGARDING CODE STATUS, PT STATES HE DOES WANT TO BE A FULL CODE FOR NOW. UPDATED THEM REGARDING POC. REPORT GIVEN TO SHELDON HERNANDEZ, ICU.
--- NOTE | 2019-02-24 15:38 | NUR ---
Pt TRANSFERRED TO ICU EARLIER TODAY D/T RESPIRATORY FAILURE. WILL NEED NEW PT ORDERS IN ORDER TO CONTINUE PT INTERVENTIONS.
--- NOTE | 2019-02-24 18:25 | NUR ---
PT ARRIVED FROM 3W AT 1300. CONTINUOUS BIPAP. ATTEMPTED TO PLACE NG X3. PT COUGHING AND VOMITTED DARK GREEN EMESIS. NG LODGED IN LUNG AFTER CXR, REMOVED IMMEDIATELY. WILL HAVE CYTOGENETIC TECHNICIAN ATTEMPT. STRAIGHT CATH BECAUSE PT WAS NOT ABLE TO VOID. PT IS BECOMING MORE CONFUSED, LOW O2 SATS ON THE MONITOR. DID WELL ON 12L HIFLO CANULA. BELLY STILL DISTENDED, NO BM.
--- NOTE | 2019-02-24 21:41 | NUR ---
Pt care assumed at 1900; pt SOA, hypotensive, abdomen very distended and firm without bowel sounds. Monitor SR, O2 sat 86% on bipap 14/6, FiO2 40%. FiO2 increased to 100% and nurse practioner paged regarding BP. 500 cc bolus NS given, maintenance fluids now at 125 cc/hr, washington inserted for accurate I&O. #16 turkmen NG placed right nare per Kathi Thomas RN without problem. Pt immediately had 1400 cc bile green drainage out. NG at 80 cm now to LIS. Will check KUB in a.m. BP improving, MAP >60, only a few cc of urine output since 1999 when washington placed. Abdomen much softer, less distended. Will continue to monitor.
[2019-02-25] VITALS (48 sets, daily range): BP systolic 56–131; BP diastolic 33–90
[2019-02-25 05:44] LABS: HEMATOCRIT 38.5 % (42.0-52.0); HEMOGLOBIN 12.7 gm/dL (14.0-18.0); MCH 29.4 pg (26.0-34.0); MCV 89.1 fL (80.0-100.0); RBC 4.32 mil/uL (4.50-6.00); RDW 15.1 % (10.5-14.5); WBC 11.5 thou/uL (4.0-11.0)
[2019-02-25 06:06] LABS: CREATININE 1.4 mg/dL (0.7-1.3); POTASSIUM 4.4 mmol/L (3.5-5.1)
--- NOTE | 2019-02-25 06:32 | NUR ---
END OF SHIFT SUMMARY: Pt slowly progressing toward goals. NG now has minimal green bile drainage, abdomen remains less distended and soft. Urine output slowly improving, though pt still oliguric, only 200 cc out this shift. Levophed started for hypotension not corrected by fluid bolus. Pt titrated up to 30 mcg/min to maintain MAP > 60. Has been on bipap most of night with settings 14/6 FiO2 60%. Pt currently on 10 L HFC, sat 97%. Pt has had several small reddish-brown liquid stools this shift. Skin remains intact.
--- NOTE | 2019-02-25 13:00 | NUR ---
CONSULTED TO PLACE A PICC FOR A PATIENT NEEDING TPN. ORDER AND CONSENT NOTED. DISCUSSED THE PROCEDURE WELL BENIFITS AND RISKS FOR DVT AND INFECTION WITH THE PATIENT AND THE . THEY BOTH VERBALIZED UNDERSTANDING. THE RIGHT UPPER ARM BASILIC WAS WIDLEY PATENT. A #5F TRIPLE LUMEN POWER PICC WAS PLACED PER HOSPITAL POLICY AFTER A BEDSIDE TIMEOUT WAS COMPLETED. THE PICC WAS TRIMMED TO 40CM AND ADVANCED WITHOUT DIFFICULTY. A STAT CHEST XRAY CONFIRMED PICC IS IN APPROPRIATE POSITION FOR USE. SAMPLE PROCESSOR NOTIFIED THAT LINE IS RELEASED FOR USE
[2019-02-25 13:21] LABS: URINE BILIRUBIN NEGATIVE (Negative); URINE BLOOD 3+ (Negative); URINE CLARITY CLEAR; URINE COLOR YELLOW; URINE GLUCOSE-RANDOM* NEGATIVE (Negative); URINE KETONES NEGATIVE (Negative); URINE NITRITE-REFLEX NEGATIVE (Negative); URINE PROTEIN (DIPSTICK) 2+ (Negative); URINE SPECIFIC GRAVITY 1.025 (1.005-1.035); URINE UROBILINOGEN 0.2 E.U./dl (0.2-1.0)
[2019-02-25 13:22] LABS: URINE LEUKOCYTES-REFLEX 1+ (Negative)
[2019-02-25 13:27] LABS: BE(vivo) -3.3 mmol/L (-2 to +3); HCO3 28.1 mmol/L (22.0-26.0); PO2 83.5 mmHg (80.0-100.0); sO2 91.9 % (92.0-98.0)
[2019-02-25 13:28] LABS: PCO2 87.6 mmHg (35.0-45.0); pH 7.124 (7.360-7.450)
[2019-02-25 13:30] LABS: AMORPHOUS URATES Moderate /LPF (None Seen); BACTERIA-REFLEX None Seen /HPF (None Seen); COARSE GRANULAR CASTS >10 Many /LPF (None Seen); SQUAMOUS 0-3 Few /LPF (0-3); URINE RBC >20 Many /HPF (0-2); URINE WBC-REFLEX 6-15 Few /HPF (0-5)
[2019-02-25 14:27] LABS: CALCIUM 8.2 mg/dL (8.5-10.1); CREATININE 1.2 mg/dL (0.7-1.3); HEMOGLOBIN 12.2 gm/dL (14.0-18.0); MCH 29.2 pg (26.0-34.0); POTASSIUM 4.5 mmol/L (3.5-5.1); WBC 12.7 thou/uL (4.0-11.0)
[2019-02-25 14:29] LABS: HEMATOCRIT 37.3 % (42.0-52.0); MCHC 32.6 g/dL (28.0-37.0); MCV 89.6 fL (80.0-100.0); PLATELET COUNT 223 thou/uL (150-400); RBC 4.16 mil/uL (4.50-6.00); RDW 15.1 % (10.5-14.5)
[2019-02-25 14:32] LABS: MAGNESIUM 2.2 mg/dL (1.8-2.4); PHOSPHORUS 3.4 mg/dL (2.5-4.9)
[2019-02-25 14:33] LABS: ALBUMIN 2.1 g/dL (3.4-5.0); TOTAL BILIRUBIN 0.3 mg/dL (<0.1-1.0); TOTAL PROTEIN 5.7 g/dL (6.4-8.2)
[2019-02-25 14:38] LABS: APTT 33.6 Seconds (24.5-32.8); FIBRINOGEN 575.4 mg/dL (210-360); INR 1.5; PROTIME 15.2 Seconds (9.3-11.4)
[2019-02-25 15:36] LABS: ABSOLUTE NEUTROPHILS 8.6 thou/uL (1.4-8.2); METAMYELOCYTES 9 %
[2019-02-25 15:38] LABS: TOXIC GRANULATION 2+
[2019-02-25 16:16] LABS: BE(vivo) -3.4 mmol/L (-2 to +3); HCO3 27.8 mmol/L (22.0-26.0); PCO2 85.8 mmHg (35.0-45.0); PO2 78.7 mmHg (80.0-100.0); pH 7.129 (7.360-7.450); sO2 90.6 % (92.0-98.0)
[2019-02-25 17:42] LABS: CREATININE 1.2 mg/dL (0.7-1.3); POTASSIUM 4.5 mmol/L (3.5-5.1)
[2019-02-25 18:25] LABS: CALCIUM 7.8 mg/dL (8.5-10.1); CREATININE 1.2 mg/dL (0.7-1.3); POTASSIUM 4.4 mmol/L (3.5-5.1)
[2019-02-25 18:30] LABS: BE(vivo) 0 mmol/L (-2 to +3); HCO3 29.8 mmol/L (22.0-26.0); sO2 94.4 % (92.0-98.0)
[2019-02-25 18:31] LABS: PCO2 76.4 mmHg (35.0-45.0); pH 7.209 (7.360-7.450)
--- NOTE | 2019-02-25 19:17 | NUR ---
PATIENT ALERT TO SELF, DROWSY WHEN AROUSED. ON BIPAP. NG TUBE TO LOW INTERMITTENT SUCTION. WALLACE PATENT AND DRAINING. TURNED Q2H. CRITICAL ABG RESULTS DISCUSSED WITH DR. ORDOÑEZ. DISCUSSED INTUBATION WITH , VERBALIZED UNDERSTANDING. CVP MONITORED. NO SIGNS OF ACUTE DISTRESS NOTED AT THIS TIME. WILL CONTINUE TO MONITOR.
[2019-02-25 21:23] LABS: BE(vivo) -0.4 mmol/L (-2 to +3); HCO3 26.7 mmol/L (22.0-26.0); PCO2 54.5 mmHg (35.0-45.0); PO2 163.2 mmHg (80.0-100.0); sO2 98.9 % (92.0-98.0)
[2019-02-25 21:24] LABS: pH 7.308 (7.360-7.450)
[2019-02-25 23:12] LABS: CALCIUM 7.5 mg/dL (8.5-10.1); CREATININE 1.1 mg/dL (0.7-1.3); POTASSIUM 4.1 mmol/L (3.5-5.1)
[2019-02-26] VITALS (95 sets, daily range): BP systolic 87–148; BP diastolic 42–75
--- NOTE | 2019-02-26 03:34 | NUR ---
ASSUMED CARE OF PT. AT 1900. PT. WAS INTUBATED [place] [address] ORDOÑEZ FOR INCREASINGLY WORSE ABGS. BEFORE INTUBATION PT. WAS RESTLESS. PT. IS NOW SEDATED AND RESTING. WILL OPEN EYES AND MOVE EXTREMTIES WHEN SEDATION IS TURNED OFF. MEDICATION TITRATION CHARTED. PT. IS NSR TO SB ON MONITOR. BLOOD PRESSURES HAVE REMAINED STABLE WITH USE OF LEVOPHED AND VASOPRESSIN. SEPSIS PROTOCOL PER DR. ORDOÑEZ CONTINUED THROUGHOUT NIGHT. ALL CRITICAL LAB VALUES CALLED. URINE OUTPUT REMAINS ADEQUATE. PT. IS PROGRESSING TOWARDS GOALS. ASSESSMENTS AND VITAL SIGNS CHARTED. WILL CONTINUE TO MONITOR.
[2019-02-26 03:42] LABS: MAGNESIUM 1.9 mg/dL (1.8-2.4); PHOSPHORUS 1.8 mg/dL (2.5-4.9)
[2019-02-26 03:43] LABS: ALBUMIN 1.8 g/dL (3.4-5.0); CALCIUM 7.4 mg/dL (8.5-10.1); POTASSIUM 3.8 mmol/L (3.5-5.1); TOTAL BILIRUBIN 0.5 mg/dL (<0.1-1.0); TOTAL PROTEIN 5.2 g/dL (6.4-8.2)
[2019-02-26 04:00] LABS: HEMATOCRIT 32.5 % (42.0-52.0); HEMOGLOBIN 11.1 gm/dL (14.0-18.0); MCH 30.2 pg (26.0-34.0); MCV 88.7 fL (80.0-100.0); PLATELET COUNT 210 thou/uL (150-400); RBC 3.66 mil/uL (4.50-6.00); RDW 15.2 % (10.5-14.5); WBC 10.9 thou/uL (4.0-11.0)
[2019-02-26 04:43] LABS: ABSOLUTE NEUTROPHILS 9.4 thou/uL (1.4-8.2); METAMYELOCYTES 2 %
[2019-02-26 05:10] LABS: BE(vivo) 0.4 mmol/L (-2 to +3); PCO2 52.9 mmHg (35.0-45.0); sO2 97.7 % (92.0-98.0)
[2019-02-26 05:12] LABS: pH 7.326 (7.360-7.450)
--- NOTE | 2019-02-26 12:32 | NUR ---
Dr. Canela called, re. KUB results. states he will look at the xray. Titrating down Levophed.
--- NOTE | 2019-02-26 19:24 | NUR ---
End of shift note. Pt remains intubated on 40%. Sedated on diprivan. Levophed decreased to 4mcg. Diuresing.
[2019-02-27] VITALS (87 sets, daily range): BP systolic 87–173; BP diastolic 46–84
--- NOTE | 2019-02-27 03:58 | NUR ---
PT INTUBATED AND ON VENT; SEDATED WITH PROPOFOL. PT INITIALLY ON LOW DOSE OF PROPOFOL, BUT BEGAN TO GET INCREASINGLY AGITATED AND GTT WAS TITRATED UP. LEVO AND VASO GTTS TITRATED DOWN AND OFF PRIOR TO MN. ONCE PT CALMED DOWN FROM THE AGITATION, BP DID START TO SLOWLY DROP AGAIN AND LEVO RESTARTED AT 2 MCG/MIN AT 0200. PHOSPHORUS LOW WHEN CHECKED EARLY LAST NIGHT. ONE BAG OF K PHOSPHORUS ORDERED BY PHARMACY GIVEN. VANC TROUGH LOW AND DOSE INCREASED BY PHARMACY. PT IS PROGRESSING. WILL CONTINUE TO MONITOR.
[2019-02-27 05:35] LABS: HEMOGLOBIN 9.9 gm/dL (14.0-18.0); MCHC 33.1 g/dL (28.0-37.0); MCV 87.7 fL (80.0-100.0); PLATELET COUNT 187 thou/uL (150-400); RBC 3.42 mil/uL (4.50-6.00); RDW 15.5 % (10.5-14.5); WBC 11.3 thou/uL (4.0-11.0)
[2019-02-27 06:03] LABS: CALCIUM 7.9 mg/dL (8.5-10.1); CREATININE 0.7 mg/dL (0.7-1.3); PHOSPHORUS 1.7 mg/dL (2.5-4.9); POTASSIUM 3.2 mmol/L (3.5-5.1)
[2019-02-27 06:22] LABS: ABSOLUTE NEUTROPHILS 9.8 thou/uL (1.4-8.2); METAMYELOCYTES 2 %; NUCLEATED RBCS 2 /100WBC
--- NOTE | 2019-02-27 08:03 | NUR ---
WILL WEAN OFF SEDATION AND PERFORM CPAP TRIAL. WILL CONTINUE TO ASSESS.
[2019-02-27 09:24] LABS: BE(vivo) 8.5 mmol/L (-2 to +3); HCO3 33.7 mmol/L (22.0-26.0); PCO2 49.7 mmHg (35.0-45.0); PO2 90.9 mmHg (80.0-100.0); pH 7.449 (7.360-7.450); sO2 97.2 % (92.0-98.0)
--- NOTE | 2019-02-27 10:17 | NUR ---
PT EXTUBATED AND RESTRAINTS DISCONTINUED. NG TUBE CLAMPED PER PER DR. ELAM. INSTRUCTED TO PLACE TO LIS IF PT BECOMES NAUSEATED.
--- NOTE | 2019-02-27 15:14 | NUR ---
ON-GOING ASSESSMENT: PT WAS EXTUBATED TODAY. PLAN WAS ORIGINALLY FOR PATIENT TO RETURN HOME WITH HH PRIOR TO HIM BEING TRANSFERED TO THE ICU. PT MAY BENEFIT FROM ACUTE CARE STAY ON [facility] PREVIOUSLY DISCUSSED AND CM SPOKE WITH [facility] LIASON WHO IS FOLLOWING PATIENT TO SEE HOW HE PROGRESSES. PT IS CURRENTLY STILL ON TPN AND THERAPIES WERE REORDERED. CM WILL CONTINUE TO FOLLOW TO ASSIST NEEDED.
[2019-02-28] VITALS (26 sets, daily range): BP systolic 121–150; BP diastolic 56–73
[2019-02-28 05:31] LABS: MAGNESIUM 2.3 mg/dL (1.8-2.4); PHOSPHORUS 2.1 mg/dL (2.5-4.9)
--- NOTE | 2019-02-28 06:13 | NUR ---
END OF SHIFT NOTE. ASSUMED CARE OF PATIENT AT APPROX 1900 ON 02/27. UPON ARRIVAL PATIENT WAS ASSESSED AND VITALS TAKEN PER ICU PROTOCOL. PATIENT ALERT AND ORIENTED TO SELF AND TIME, DROWSY, AND CALM. DAUGHTER AT BEDSIDE EXPLAINED THAT PATIENT IS NOT NORMALLY CONFUSED. NG CLAMED, NO COMPLAINTS OF N/V OVERNIGHT, RESIDUALS CHECKED EVERY 6 HOURS, AT 0000 RESIDUAL OF 20ML, AT 0600 RESIDUAL OF 0ML. NO COMPLAINTS OF PAIN. ABDOMINAL INCISION INTACT WITH KAREN. COMPLETE BED BATH GIVEN. NO SIGNIFICANT EVENTS OVERNIGHT.
--- NOTE | 2019-02-28 15:34 | NUR ---
ON-GOING ASSESSMENT: PT IS SLOWLY PROGRESSING TOWARDS GOALS. PT REMAINS ON IV ANBX/ TPN. PT HAD DROP IN HEMOGLOBIN TODAY TO 9.9. PATIENTS NG IS CLAMPED. [facility] IS FOLLOWING PATIENT TO SEE HOW HE PROGRESSES AND WHAT HE IS ABLE TO TOLERATE. CM WILL CONTINUE TO FOLLOW.
--- NOTE | 2019-02-28 17:11 | NUR ---
CHART REVIEWED BY RINKU CORDERO NP WITH DR. GLASS. PATIENT MAY BE A CANDIDATE FOR ACUTE REHAB. CURRENTLY WITH REHAB NEEDS. WILL CONTINUE TO FOLLOW.
--- NOTE | 2019-02-28 18:11 | NUR ---
PATIENT WORKED WITH PT/OT TODAY. HE DROPPED HIS OXYGENATION LEVELS INTO THE UPPER 70% WITH ACTIVITY. HE IS ABLE TO HELP WITH TURNS AND STAND, HOWEVER, HE HAS MINIMAL RESPIRATORY RESERVE. HE RECOVERS HIS O2 SATURATION, HOWEVER, IT TAKES APPROXIMATELY 3-5 MINUTES TO RECOVER. HE HAS DENIED PAIN. HE HAS BEEN TURNED. ORAL CARE PROVIDED WHEN PATIENT EXPRESSES HE WANTS IT. HIS MOUTH IS DRY. NURSE PROVIDED EDUCATION IN REGARDS TO ORAL CARE AND THE HEALTH OF HIS MOUTH. VITAL SIGNS AND ASSESSMENTS DOCUMENTED. NURSE TALKED WITH PHYSICIANS ABOUT THE DRAINAGE FROM HIS INCISION. NO NEW ORDERS OBTAINED. NURSE, PER DR. RENATE MEDINA, DID PUT A 4X4 OVER THE AREA OF HIS INCISION THAT WAS DRAINING. IT APPEARS TO BE YELLOW DRAINAGE, HOWEVER, NURSE WILL CONTINUE TO MONITOR. PATIENT SLOWLY PROGRESSING TOWARDS PLAN OF CARE.
[2019-03-01] VITALS (15 sets, daily range): BP systolic 122–161; BP diastolic 61–73
[2019-03-01 05:24] LABS: CALCIUM 7.7 mg/dL (8.5-10.1); CREATININE 1.1 mg/dL (0.7-1.3); POTASSIUM 3.2 mmol/L (3.5-5.1)
[2019-03-01 05:24] LABS: MAGNESIUM 1.7 mg/dL (1.8-2.4); PHOSPHORUS 2.5 mg/dL (2.5-4.9)
--- NOTE | 2019-03-01 07:10 | NUR ---
PT SLEEPING OFF AND ON. PT HAD ON CPAP UNTIL 0, THEN PT WOULD NOT WEAR. 02SAT 97. LS DIMINISHED. CONGESTED COUGH. CONT TO ENC COUGH, AND DEEP BREATH. DENIES PAIN OR NAUSEA. ABD INCISION INTACT. +BS. WANTS TO EAT. TPN INFUSING ORDERED. CONT PLAN OF CARE
[2019-03-01 13:43] LABS: MAGNESIUM 2.6 mg/dL (1.8-2.4); POTASSIUM 4.8 mmol/L (3.5-5.1)
--- NOTE | 2019-03-01 13:45 | NUR ---
ASSESSMENTS AND VITAL SIGNS DOCUMENTED. PATIENT WAS WHEELED UP TO 3 WEST WITH ALL BELONGINGS. HE DENIED PAIN TODAY. HE WORKED WITH PT TO GET UP TO CHAIR. HIS OXYGENATION WITH THIS WAS 86% AT LOWEST. REPORT CALLED AND GIVEN TO NEXT RN FOR CONTINUATION OF CARE.
--- NOTE | 2019-03-01 13:46 | NUR ---
SW reviewed chart and spoke with nursing and attending physician. Pt is progressing towards goals for discharge. SW discussed case with [facility], who state they are able to accept pt when he is medically stable. Anticipating discharge to tomorrow. Pt to transfer from ICU to 3. SW is following to assist as needed with discharge planning.
--- NOTE | 2019-03-01 17:53 | NUR ---
ASSUMED CARE @ 0700 03/01/19, PT ASSESSMENTS AND VSS COMPLETE PER [facility] STATUS. PT ALERT AND ORIENTED X4, PT ABLE TO FOLLOW COMMANDS TO HIS BEST ABILITY. PT ON 3L OF O2 (BASELINE), SOB WITH EXERTIONS PRESENT, PT DOES DESAT TO HIGH 80'S WITH EXERTION, BUT IN THE HIGH 90'S WHILE RESTING. PT SR ON THE MONITOR. TPN RUNNING ORDERED, WALLACE IN PLACE, GOP NOTED. AND FRIENDS HERE TO VISIT WITH, PLAN OF CARE- CONT TO MONITOR.
[2019-03-02 05:00] VITALS: BP 110/64
--- NOTE | 2019-03-02 05:48 | NUR ---
ASSUMED CARE AT 1900, ASSESSMENT COMPLETED. PT DENIES PAIN OR NAUSEA, TOLERATING CLEAR LIQUID DIET. COARSE LUNG SOUNDS WITH A CONGESTED COUGH, OCCASIONALLY PRODUCING CLEAR SPUTUM. ON 3L NC, SPENT ABOUT FOUR HOURS ON BIPAP OVERNIGHT, SATTING IN MID 90'S OR HIGHER. SR ON TELE, HR HIGH 50'S TO 60'S. TPN INFUSING OVERNIGHT AT 55 ML/HR. DARK YELLOW URINE OUT OF WALLACE. NO OTHER CONCERNS, WILL CONTINUE TO MONITOR.
[2019-03-02 06:47] LABS: HEMATOCRIT 30.5 % (42.0-52.0); MCH 29.1 pg (26.0-34.0); MCHC 32.7 g/dL (28.0-37.0); PLATELET COUNT 198 thou/uL (150-400); RBC 3.43 mil/uL (4.50-6.00); RDW 15.7 % (10.5-14.5); WBC 21.2 thou/uL (4.0-11.0)
[2019-03-02 06:51] LABS: CALCIUM 8.5 mg/dL (8.5-10.1); CREATININE 0.6 mg/dL (0.7-1.3); POTASSIUM 4.7 mmol/L (3.5-5.1)
[2019-03-02 07:29] VITALS: BP 144/61
[2019-03-02 08:54] LABS: ABSOLUTE NEUTROPHILS 18.4 thou/uL (1.4-8.2); METAMYELOCYTES 2 %; PLATELET ESTIMATE NORMAL
--- NOTE | 2019-03-02 10:31 | NUR ---
PT UP IN CHAIR THIS AM. DR ELAM CAME BY AND STATED PT COULD BE ADVANCED TO FULL LIQUID DIET AND TO MONITOR INCISION DRAINAGE. PT HAD GAUZE AND TAPE OVER LOWER PORTION OF MIDLINE ABDOMINAL INCISION. SEROUS DRAINAGE SATURATED GAUZE WAS REMOVED AND REPLACED WITH ABD AND TAPE. DR ELAM CHANGED PT TO NPO AND ORDERED AN ABDOMINAL CT WITH CONTRAST. PT WAS GIVEN ORAL CONTRAST TO DRINK FOR CONTRAST. PT DENIES PAIN. ON 3L NC. DAUGHTER UP TO BEDSIDE. TPN INFUSING THROUGH TRIPLE LEUMEN PICC LINE. POC EXPLAINED TO PT AND DAUGHTER, BOTH AGREE.
--- NOTE | 2019-03-02 14:09 | NUR ---
SW reviewed chart and spoke with nursing and attending physician. Discussed with [facility], who can accept once pt is off TPN and tolerating a diet. Pt on clear liquids today. Pt had CT scan earlier today. SW met with pt at bedside to discuss discharge plan to [facility]. Pt is aware and in agreement with discharge plan. SW is following to assist as needed with discharge planning.
[2019-03-02 15:21] VITALS: BP 123/55
[2019-03-02 19:40] VITALS: BP 132/70
[2019-03-03 05:15] VITALS: BP 127/69
[2019-03-03 06:11] LABS: HEMATOCRIT 31.4 % (42.0-52.0); HEMOGLOBIN 10.3 gm/dL (14.0-18.0); MCHC 32.8 g/dL (28.0-37.0); MCV 88.3 fL (80.0-100.0); PLATELET COUNT 213 thou/uL (150-400); RBC 3.56 mil/uL (4.50-6.00); RDW 15.7 % (10.5-14.5); WBC 18.4 thou/uL (4.0-11.0)
[2019-03-03 06:25] LABS: CALCIUM 8.3 mg/dL (8.5-10.1); CREATININE 0.6 mg/dL (0.7-1.3); MAGNESIUM 2.2 mg/dL (1.8-2.4); PHOSPHORUS 2.7 mg/dL (2.5-4.9); POTASSIUM 4.7 mmol/L (3.5-5.1)
--- NOTE | 2019-03-03 06:57 | NUR ---
PATIENT IS ALERT AND ORIENTED. PATIENT IS UP TIMES ONE WITH WALKER. PATIENT IS ON 4LNC. PATIENT WAS ON CPAP FOR 4 HOURS HS. PATIENT HAS A WALLACE. PATIENTS LBM WAS THE 22ND. PATIENT MIDLINE INSICION IS INTACT NO DRAINAGE THIS SHIFT. PATIENT DENIES PAIN. PATIENT IS RESTING COMFORTABLY IN BED. WCM. PATIENT IS PROGRESSING TO GOALS.
[2019-03-03 07:27] VITALS: BP 143/81
[2019-03-03 07:55] LABS: ABSOLUTE NEUTROPHILS 14.5 thou/uL (1.4-8.2); METAMYELOCYTES 2 %; MYELOCYTES 1 %
[2019-03-03 07:56] LABS: ANISOCYTOSIS SLIGHT
--- NOTE | 2019-03-03 14:49 | NUR ---
SW reviewed chart and spoke with nursing and attending physician. Pt remains on TPN. Pt's diet is being advanced. Pt will d/c to [facility] when tolerating diet and off TPN. SW confirmed with [facility] clinical rehab liaison that is able to accept pt over the weekend. [facility] is following to assist as needed with discharge planning.
[2019-03-03 16:12] VITALS: BP 135/79
--- NOTE | 2019-03-03 16:39 | NUR ---
ASSUMED PATIENT CARE AT 0700. A/O X4. NO DRAINGE NOTED FROM MIDLINE INSICION. DENIES PAIN. NO N/V. TPN AND WALLACE DC'D. PROGRESSING TOWARDS POC GOALS.
--- NOTE | 2019-03-03 17:34 | NUR ---
PATIENT IS BEING FOLLOWED BY DR. GLASS TO ASSESS CANDIDACY FOR ACUTE REHAB. FOR QUESTIONS RELATED TO REHAB ADMISSION OVER THE WEEKEND, PLEASE CONTACT THE CERTIFIED RESPIRATORY THERAPIST AT [phone].
[2019-03-03 19:37] VITALS: BP 116/68
[2019-03-03 22:20] VITALS: BP 122/72
--- NOTE | 2019-03-04 01:00 | NUR ---
PT ARRIVED OM UNIT FROM 3W APPROXIAMTELY 2200. PT ALERT AND ORIENTED. REASSESSMENT COMPLETE. AGREE WITH TRANSFERING NURSE ASSESSMENT. SUCTION SET UP AT BEDSIDE FOR PATIENT USE. PT ON 4L O2 VIA NC. CPAP FOR NIGHT USE. WORKING TOWARD POC. CALL LIGHT AND PERSONAL BELONINGS WITHIN REACH, WILL CONTINUE POC UNTIL POC.
[2019-03-04 04:24] VITALS: BP 125/73
[2019-03-04 07:51] VITALS: BP 138/75
--- NOTE | 2019-03-04 16:43 | NUR ---
PT A&OX4, PICC LINE IN ANCA INTACT. ABD DRSG TO MIDLINE C/D/I. O2@3L. AMBULATES WITH ASSIST. SPOUSE AT BEDSIDE. PT UP IN CHAIR FOR DINNER. DENIES ANY PAIN AT THIS TIME.
[2019-03-04 17:27] VITALS: BP 132/75
[2019-03-04 20:15] VITALS: BP 138/62
--- NOTE | 2019-03-05 03:37 | NUR ---
ASSUMED PT CARE 1899. PT ALERT AND ORIENTED. REASSESSMENT COMPLETE. VSS. PICC DRESSING C/D/I. DENIES PAIN, DENEIS N/V. WORKING TOWARD POC. CALL LIGHT AND PERSONAL BELONIGNS WITHIN REACH. WILL CONTINUE POC UNTIL EOS.
[2019-03-05 04:30] VITALS: BP 128/57
[2019-03-05 07:30] VITALS: BP 143/77
[2019-03-05 15:40] VITALS: BP 122/64
--- NOTE | 2019-03-05 18:51 | NUR ---
PT A&OX4, PICC INTACT IN ANCA. O2 @ 3L PER NC. ABD CAMERON C/D/I. SPOUSE AT BEDSIDE.
[2019-03-05 19:46] VITALS: BP 121/65
--- NOTE | 2019-03-06 04:32 | NUR ---
ASSUMED CARE OF PT @1900 PT ASSESSED AT START OF SHIFT DENIES PAIN. EVENING MEDS GIVEN AND ABX INFUSING. AT BEDSIDE. USES URINAL AT NIGHT AND HAD 1BM TONIGHT. 3 LUMEN PICC INTACT. ON 3L OF O2 AND GETS BREATHING TX. FALL PREC IN PLACE AND CALL LIGHT WITHIN REACH WILL CONT TO MONITOR TILL EOS
[2019-03-06 05:58] VITALS: BP 141/70
[2019-03-06 07:45] VITALS: BP 146/69
--- NOTE | 2019-03-06 12:10 | NUR ---
Following for d/c planning needs. Pt and spouse had spoken with nurse and said they may be interested in going to swing bed at [facility]. Reviewed chart and spoke at length with pt and spouse. Pt was hospitalized at [facility] in the past and went to [facility]. Spouse said they live in [place] and it would be closer to their home if pt goes to [facility] swing bed. Explained difference of swing bed vs inpatient rehab. Also explained that physicians would continue to follow pt on rehab. Awaiting input from PT and OT whether pt is able to tolerate inpatient rehab at this time. Pt and spouse would prefer pt go to [facility] if accepted. Will remain available to assist as needed.
[2019-03-06] MEDS ORDERED: SOLU-MEDRO125 MG/23 IV PUSH (15:06)
[2019-03-06] MEDS ORDERED: MIRALAX17 GM PO (15:06)
[2019-03-06] MEDS ORDERED: ENOXAPARIN40 MG/0.1 SUBQ (15:06)
[2019-03-06] MEDS ORDERED: FLOMAX0.4 MG PO (15:06)
[2019-03-06] MEDS ORDERED: CIPRO250 M1 PO (15:06)
--- NOTE | 2019-03-06 16:31 | EKG ---
[address] [place] [address] ELECTROCARDIOGRAM REPORT Name: KEISHA BRITT Room #: 421-P ADM IN M.R.#: [id number] Admission: 02/21/19 Attend Phys: Evelyn Lowe MD Discharge: Date of : 38 Report #: [id number] THIS REPORT FOR: //name// [facility] Test Date: 2019-03-06 Test Time: 11:43:28 Pat Name: KEISHA BRITT Department: Room: 421 P Gender: M Poultry Boner: Maryam ASHBY : 1940 Requested By: Darnell Lowery Order Number: [id number] MD: Ventura Jacinto Measurements Intervals [place] Rate: 74 P: 50 AR: 134 QRS: 51 QRSD: 86 T: 55 QT: 376 QTc: 418 Interpretive Statements Sinus rhythm Normal tracing Compared to ECG 03/17/2017 09:11:51 No significant changes Electronically Signed On 03-06-2019 16:31:36 CDT by Ventura Jacinto [email or web address] <ELECTRONICALLY SIGNED> By: Ventura Jacinto MD, [facility] 03/06/19 1631 1143 1143 Ventura Jacinto MD, FACC /EPI
--- NOTE | 2019-03-06 18:25 | HC ---
[facility] [place] [address] CONSULTATION Name: KEISHA BRITT Room #: 421-P [facility] IN M.R.#: [id number] Admission: 02/21/19 Attend Phys: Evelyn Lowe MD Discharge: 03/06/19 Date of : 38 Report #: [id number] THIS REPORT FOR: //name// CC: Hola Rausch Brando DATE OF SERVICE: 02/25/2019 PULMONARY CONSULTATION REFERRING PHYSICIAN: Dr. Lowe. REASON FOR REFERRAL: Hypoxia. HISTORY OF PRESENT ILLNESS: The patient is a 78-year-old white male who underwent abdominal surgery. He now has developed progressive hypoxia and hypotension. A pulmonary consultation was requested. The patient was admitted on 02/21/2019. He then underwent abdominal surgery for small-bowel obstruction, rule out hernia, lysis of adhesion. Postoperatively, the patient was doing fair until yesterday when he started to develop progressive dyspnea, hypoxia. Overnight, he has also been borderline hypotensive. Currently, he appears somewhat confused, restless, appears to be mild to moderately distressed. PAST MEDICAL HISTORY: As mentioned above, past history of respiratory failure, following abdominal surgery about 2 years ago. Also, has a history of coronary artery disease, undergone prior stent placement, COPD, tobacco abuse, past history of abdominal sepsis, necrotic bowel undergoing laparotomy with lysis of adhesion in 2017. ALLERGIES: None to medications. MEDICATIONS: List reviewed in the MAR. HOME MEDICATIONS: Include Ventolin MDI 2 puffs p.r.n., Pepcid 20 mg p.o. b.i.d., Colace 100 mg once a day, MiraLax, Flomax, aspirin, nebulized Pulmicort 0.5 mg b.i.d., aspirin once a day. FAMILY HISTORY: Noncontributory. SOCIAL HISTORY: The patient smoked about less than a pack a day for more than 50 years. He apparently quit smoking in 2019. He drinks socially. [facility] [address] [place] [address] CONSULTATION Name: KEISHA BRITT Room #: 421-P [facility]#: [id number] Admission: 02/21/19 Attend Phys: Evelyn Lowe MD Discharge: 03/06/19 Date of : 38 Report #: [id number] REVIEW OF SYSTEMS: Deferred as the patient is not able to answer questions. PHYSICAL EXAMINATION: GENERAL: He is awake, in mild to moderately distressed, appears dyspneic. VITAL SIGNS: Temperature is 98 degrees Fahrenheit, pulse is 80, respiratory rate 22, blood pressure is 86/51 mmHg, saturation 94%. HEENT: Normocephalic, atraumatic. NECK: Supple, without any lymphadenopathy or thyromegaly. CHEST: Breath sounds are decreased bilaterally. Few scattered crackles. No wheezes. CARDIOVASCULAR: Normal S1, S2. No murmurs or gallop. There is no JVD. There is no carotid bruit. Pulses are 2+/4+ bilaterally. ABDOMEN: Soft, no masses felt. GENITOURINARY: Deferred. RECTAL: Deferred. EXTREMITIES: There is no edema, cyanosis or clubbing. LABORATORY DATA: Portable chest x-ray shows mild bibasilar interstitial infiltrates, the last x-ray performed yesterday on 02/24/2019 suggest that the NG tube is in the right main stem bronchus. The proximal part of the NG tube appears to be in the left main stem bronchus, (I understand a NG tube was withdrawn last night and replaced). Sodium 135, potassium 4.4, chloride 98, CO2 is 30, BUN is 47, creatinine is 1.4. Admitting creatinine was 1.2. Liver enzymes are grossly unremarkable. WBC is 11,500, hemoglobin 12.7, platelets are normal. Albumin is 2.1. Arterial blood gas yesterday revealed pH 7.24, pCO2 81, pO2 81 on FiO2 of 50%. Follow up arterial blood gas revealed pH 7.12, pCO2 87, pO2 83 on 6 liters of O2. IMPRESSION: 1. Zvqkg-[id number] hypercapnic hypoxic respiratory failure in this 78-year-old white male, likely secondary to severe sepsis, probable aspiration. 2. Bilateral infiltrates, left greater in the right, likely aspiration. 3. Severe sepsis, hypotension due to above. 4. Status post laparotomy for small-bowel obstruction, lysis of adhesion, history of hiatal hernia. 5. Acute kidney injury likely related to acute tubular necrosis related to severe sepsis. 6. Chronic obstructive pulmonary disease, severity unknown, had been smoking up to recently. 7. Coronary artery disease, echocardiogram pending. 8. Hypotension. RECOMMENDATION: We will initiate sepsis protocol given the above findings, probable aspiration, vasopressors, IV fluids. The patient will also likely need elective intubation given the inability to adequately ventilate especially with ongoing sepsis. DVT and GI prophylaxis recommended. Broad spectrum antibiotics [facility] [address] [place] [address] CONSULTATION Name: KEISHA BRITT Room #: 421-P [facility] IN M.R.#: [id number] Admission: 02/21/19 Attend Phys: Evelyn Lowe MD Discharge: 03/06/19 Date of : 38 Report #: [id number] to cover for aspiration pneumonia such as gram negatives, anaerobes. Bronchodilators and corticosteroids will be initiated. Thank you for this consultation. Critical care time 1 hour and 30 minutes. <ELECTRONICALLY SIGNED> By: Wesley Wiggins MD 03/06/19 1825 [id number] [id number] Wesley Wiggins MD /nt
--- NOTE | 2019-04-26 07:36 | O ---
[facility] [place] [address] OPERATIVE REPORT Name: KEISHA BRITT Room #: 421-P [facility] IN M.R.#: [id number] Admission: 02/21/19 Attend Phys: Evelyn Lowe MD Discharge: 03/06/19 Date of : 39 Report #: [id number] THIS REPORT FOR: //name// CC: Hola Lowe DATE OF SERVICE: 02/21/2019 PREOPERATIVE DIAGNOSES: Internal hernia with a small-bowel obstruction. POSTOPERATIVE DIAGNOSES: Internal hernia with a small-bowel obstruction. OPERATIVE PROCEDURE DONE: Exploratory laparotomy and lysis of adhesions. OPERATING SURGEON: Sonu Barbour MD INDICATIONS FOR THE PROCEDURE: The patient is a 78-year-old male who presented with complaints of acute onset of abdominal pain that he has been having. Clinical exam and CT scan showed features of a possible ischemic bowel. The patient had peritoneal signs. The patient was advised exploratory laparotomy. DESCRIPTION OF PROCEDURE: After explaining to the patient in detail and informed consent was obtained. The patient was identified in the preoperative holding area. The patient was transferred to the operating room and was placed in supine position. Sequential compressive devices were placed for DVT prophylaxis. Preoperative antibiotics were given. After induction of anesthesia, the abdomen was prepped and draped in a sterile fashion. Through a midline incision measuring approximately about 12 cm, the peritoneal cavity was entered. On initial inspection, there was a segment of mid small bowel that measured approximately about 2 feet that was involved within the internal hernia that was caused by adhesive band. This was lysed using scissors. Thereafter, the position of the small bowel improved. Then I inspected the stomach and small bowel from the ligament of Treitz up to the terminal ileum and the colon, which all appeared otherwise normal. The rest of the abdominal viscera appeared normal. The abdomen was then closed with #1 PDS for the fascia. Skin was closed with chelita. The patient was awoken from anesthesia and was transferred to the recovery room in stable condition. ESTIMATED BLOOD LOSS: Approximately 5 mL. CONDITION THE PATIENT: Stable. FLUIDS GIVEN: Per Anesthesia notes. SPECIMEN SENT: None. [address] [address] OPERATIVE REPORT Name: KEISHA BRITT Room #: 421-P [facility] IN Madisyn.Hardeep#: [id number] Admission: 02/21/19 Attend Phys: Evelyn Lowe MD Discharge: 03/06/19 Date of : 39 Report #: [id number] COMPLICATIONS: None. ANESTHESIA: General anesthesia. <ELECTRONICALLY SIGNED> By: Sonu Barbour MD 04/26/19 0736 1748 2136 Sonu Barbour MD /nt
--- NOTE | 2019-04-28 07:03 | HC ---
[facility] [place] [address] CONSULTATION Name: KEISHA BRITT Room #: 421-P [facility] IN M.R.#: [id number] Admission: 02/21/19 Attend Phys: Evelyn Lowe MD Discharge: 03/06/19 Date of : 39 Report #: [id number] THIS REPORT FOR: //name// CC: Hola Michaels DATE OF SERVICE: 02/26/2019 INFECTIOUS DISEASE CONSULTATION CONSULTATION REQUESTED BY: Dr. Gallardo. REASON FOR CONSULTATION: Sepsis. HISTORY OF PRESENT ILLNESS: The patient is a 78-year-old white man, status post exploratory laparotomy for repair of intra-abdominal hernia, who developed ileus and possible aspiration. The patient required transfer to the ICU, mechanical ventilator after intubation and he is on treatment with Zosyn and vancomycin. The patient now sedated. All information gathered from review of records. PAST MEDICAL HISTORY: 1. COPD. 2. Urinary retention 3. Hypertension. 4. Coronary artery disease. 5. Status post recent exploratory laparotomy and lysis of adhesions. ALLERGIES: None listed. MEDICATIONS: The patient is on treatment with vancomycin 750 mg IV every 12 hours. He is also receiving Zosyn 3.375 grams IV every 8 hours. On treatment with polyethylene glycol, methylprednisolone 62.5 mg IV every 8 hours, chlorhexidine oral care, midazolam p.r.n., morphine sulfate p.r.n. TPN, propofol sedation, insulin lispro per sliding scale, pressors per protocol. PAST MEDICAL HISTORY: COPD, ischemic bowel disease, pneumonia, weakness, respiratory failure, ischemic necrosis of small bowel, hypertension. The patient also has a history of chronic kidney disease, diabetes mellitus, hypoalbuminemia, mild normocytic normochromic anemia. SOCIAL HISTORY: Unable to obtain. See H and P, old records. FAMILY HISTORY: Unable to obtain. See H and P, old records. REVIEW OF SYSTEMS: Unable to obtain. See H and P, old records. [facility] [address] [place] [address] CONSULTATION Name: KEISHA BRITT Room #: 421-P [facility] IN [facility]#: [id number] Admission: 02/21/19 Attend Phys: Evelyn Lowe MD Discharge: 03/06/19 Date of : 39 Report #: [id number] PHYSICAL EXAMINATION: GENERAL: Well-developed, sedated white man, in ICU, on ventilator, orotracheal intubation. VITAL SIGNS: Temperature 99.2, pulse 72, respirations 18, BP 117/45, height 5 feet 11 inches, weight 168 pounds on February 26, prior to that we have choices between 152.8 to 159.5 pounds. HEENMT: Pupils reactive. Mouth, unable to examine. NECK: Supple. LUNGS: Crackles at right lung base posteriorly. HEART: S1, S2. ABDOMEN: With laparotomy wound with chelita in place. Wound clean. Bowel sounds decreased to absent. GENITALIA: Elkins catheter in place. RECTAL: Deferred. EXTREMITIES: No clubbing or cyanosis. LABORATORY DATA: Sodium 138, potassium 3.8, BUN 50, creatinine 1, glucose 224, phosphorus 1.8, albumin 1.8, protime 15.2 seconds, fibrinogen 575.4. WBC 10,900, hemoglobin 11.1 g/dL, platelets 210,000. The white blood cell count revealed 48% segmented neutrophils, 38% bands. Prealbumin low at 8.7. Procalcitonin elevated at 7.42. Urinalysis revealed 2+ protein, 3+ blood, 1+ leukocyte esterase. Microscopic exam revealed pyuria, microscopic hematuria and many bacteria. There are moderate granular casts as well. ABGs: pH 7.32, pCO2 of 52, pO2 of 112, bicarbonate 27, lactate 1.33. This set of gases on FiO2 of 50%, 6 of PEEP and tidal volume of 550. MICROBIOLOGY DATA: Blood cultures obtained yesterday, 1/2 samples reveal gram-negative rods. Urine culture is pending. Sputum culture is pending, not even Gram stain available. RADIOLOGY EVALUATION: A chest x-ray yesterday revealed endotracheal tube, NG tube in place, pulmonary infiltrates, effusions similar to previously, whatever that might, I will review x-rays to make up my mind. Chest x-ray from February 25 reviewed, revealed bibasilar pulmonary infiltrates, more prominent on the left base. KU obtained yesterday revealed gaseous distention of the large and small bowel. No obvious obstruction. Also, there is evidence of left total hip replacement. ASSESSMENT: 1. Possible aspiration pneumonia. 2. Leukocytosis with bandemia secondary to above. 3. Status post exploratory laparotomy for small-bowel obstruction. 4. Chronic kidney disease. 5. Hypoalbuminemia. 7. Chronic obstructive pulmonary disease. 8. Respiratory failure, ventilator dependent. [facility] [address] [place] [address] CONSULTATION Name: KEISHA BRITT Room #: 421-P [facility] IN M.R.#: [id number] Admission: 02/21/19 Attend Phys: Evelyn Lowe MD Discharge: 03/06/19 Date of : 39 Report #: [id number] 9. Gram-negative speedy bacteremia, undetermined source. SUGGESTIONS AND RECOMMENDATIONS: Obviously, the patient covered fully for gram-negative and gram-positive cocci infection with combination of Zosyn and vancomycin and we will continue this regimen. Streamline regimen once culture available to us. Dr. Gallardo, thank you for requesting my suggestions. <ELECTRONICALLY SIGNED> By: Clayton Fernandez MD 04/28/19 0703 1121 1617 Clayton Fernandez MD /nt
== END 2019-03-06 17:44 | DRG 335 ==
LOC: 3W 14:42 → ICU 14:42 → 3W 03-01 13:52 → 4E 03-03 22:10
PROVIDERS: Anesthesiology; Hospitalist; Internal Medicine; Internal Medicine Pulmonary Disease; Nurse Practitioner Acute Care; Pediatrics; Surgery; ADMIT Internal Medicine
PROC: 0DN80ZZ Release Small Intestine, Open Approach (ICD-10-PCS; principal; 2019-02-21)
PROC: 5A09357 Assistance with Respiratory Ventilation, Less than 24 Consecutive Hours, Continuous Positive Airway Pressure (ICD-10-PCS; principal; 2019-02-21)
PROC: 5A09357 Assistance with Respiratory Ventilation, Less than 24 Consecutive Hours, Continuous Positive Airway Pressure (ICD-10-PCS; 2019-02-22)
PROC: 5A09357 Assistance with Respiratory Ventilation, Less than 24 Consecutive Hours, Continuous Positive Airway Pressure (ICD-10-PCS; 2019-02-23)
PROC: 5A09357 Assistance with Respiratory Ventilation, Less than 24 Consecutive Hours, Continuous Positive Airway Pressure (ICD-10-PCS; 2019-02-24)
PROC: 5A1945Z Respiratory Ventilation, 24-96 Consecutive Hours (ICD-10-PCS; 2019-02-25)
PROC: 0BH17EZ Insertion of Endotracheal Airway into Trachea, Via Natural or Artificial Opening (ICD-10-PCS; 2019-02-25)
PROC: 0D9670Z Drainage of Stomach with Drainage Device, Via Natural or Artificial Opening (ICD-10-PCS; 2019-02-25)
PROC: 02HV33Z Insertion of Infusion Device into Superior Vena Cava, Percutaneous Approach (ICD-10-PCS; 2019-02-25)
PROC: 5A09357 Assistance with Respiratory Ventilation, Less than 24 Consecutive Hours, Continuous Positive Airway Pressure (ICD-10-PCS; 2019-02-25)
PROC: 5A09357 Assistance with Respiratory Ventilation, Less than 24 Consecutive Hours, Continuous Positive Airway Pressure (ICD-10-PCS; 2019-02-28)
PROC: 5A09357 Assistance with Respiratory Ventilation, Less than 24 Consecutive Hours, Continuous Positive Airway Pressure (ICD-10-PCS; 2019-03-01)
PROC: 5A09357 Assistance with Respiratory Ventilation, Less than 24 Consecutive Hours, Continuous Positive Airway Pressure (ICD-10-PCS; 2019-03-02)
PROC: 5A09357 Assistance with Respiratory Ventilation, Less than 24 Consecutive Hours, Continuous Positive Airway Pressure (ICD-10-PCS; 2019-03-03)
PROC: 5A09357 Assistance with Respiratory Ventilation, Less than 24 Consecutive Hours, Continuous Positive Airway Pressure (ICD-10-PCS; 2019-03-04)
PROC: 5A09357 Assistance with Respiratory Ventilation, Less than 24 Consecutive Hours, Continuous Positive Airway Pressure (ICD-10-PCS; 2019-03-05)
DX: K56.50 Intestinal adhesions [bands], unspecified as to partial versus complete obstruction (principal); J96.21 Acute and chronic respiratory failure with hypoxia; K65.0 Generalized (acute) peritonitis; A41.59 Other Gram-negative sepsis; J69.0 Pneumonitis due to inhalation of food and vomit; R65.20 Severe sepsis without septic shock; J96.22 Acute and chronic respiratory failure with hypercapnia; A41.9 Sepsis, unspecified organism; Z99.11 Dependence on respirator [ventilator] status; K45.0 Other specified abdominal hernia with obstruction, without gangrene; E46 Unspecified protein-calorie malnutrition; N17.9 Acute kidney failure, unspecified; K56.2 Volvulus; K56.7 Ileus, unspecified; I25.10 Atherosclerotic heart disease of native coronary artery without angina pectoris; E11.22 Type 2 diabetes mellitus with diabetic chronic kidney disease; I12.9 Hypertensive chronic kidney disease with stage 1 through stage 4 chronic kidney disease, or unspecified chronic kidney disease; N18.3 Chronic kidney disease, stage 3 (moderate); J44.9 Chronic obstructive pulmonary disease, unspecified; K21.9 Gastro-esophageal reflux disease without esophagitis; R33.9 Retention of urine, unspecified; Z96.649 Presence of unspecified artificial hip joint; E87.6 Hypokalemia; E83.42 Hypomagnesemia; K59.00 Constipation, unspecified; D63.8 Anemia in other chronic diseases classified elsewhere; I25.2 Old myocardial infarction; Z68.22 Body mass index [BMI] 22.0-22.9, adult; Z87.891 Personal history of nicotine dependence; Z95.5 Presence of coronary angioplasty implant and graft; Z79.82 Long term (current) use of aspirin; Z79.899 Other long term (current) drug therapy
CPT/HCPCS: 10078; 10783; 10879; 27000; 50010; 50101; 50386; 51412; 56527; 57092; 57103; 62110; 62900; 70005

== ENCOUNTER 2019-03-06 15:19 | Inpatient (IN) | payer OTHER ==
[~2019-03-06] VITALS: Ht 180.3 cm; Wt 62.1 kg
[~2019-03-06 15:19] MED LIST changes: +BEVESPI AEROS10.7 GM INH; +BYSTOLIC 5 MG5 MG PO; +CIPRO250 M1 PO; +COZAAR 25 MG TA25 M1 PO; +PREDNISONE 10 M10 MG PO; +SOLU-MEDRO125 MG/23 IV PUSH; +ZOCOR 20 MG TAB20 M1 PO
[2019-03-06 18:03] VITALS: BP 132/66
[2019-03-06 19:34] VITALS: BP 130/73
--- NOTE | 2019-03-06 20:21 | NUR ---
PT ADMITTED TO AROUND 1744 HX SBO AND S/P WITH LYSIS OF ADHENSION ON 02/21. VSS TAKEN, ON 3L OF OXYGEN. REPORTS LAST BM WAS THIS AFTERNOON. HAD LARGE LOOSE BM AT 1600 TODAY. ALERT AND ORIENTED X4 ABLE TO VOICE HIS NEEDS. ORIENTED PT TO THE UNIT. REVIEWED MEDS LIST WITH PT AND FAXED TO PHARMACY. NOTIFIED FREDA PT IS ON THE UNIT AND SHE WILL COME TO SEE PT TOMORROW. PT ATE DINNER 25% AND DRANK 100% ENSURE. DENIES PAIN. ABD INCISION DRY AND INTACT. UP WITH MAX ASSIST WITH DIFFICULTY. WT OBTAINED. DISCUSSED WITH PT ABOUT REHAB SCHEUDULE. PT SIGNED CONSENTS, SON WAS WITH PT. OT/PT/ST WILL BE EVALUATE PT TOMORROW. C/O WEAKNESS. CONTINUE TO BE ON ASPIRATION PRECAUTION. OFFERED SUPPORTIVE CARE. FALL PRECAUTION IN PLACE. GAVE REPORT TO NIGHT NURSE TO CONTINUE WITH ADMISSION PROCESS.
--- NOTE | 2019-03-07 04:30 | NUR ---
PATIENT ALERT AND ORIENTED X4. PICC LINE PATENT. MID ABD INCISION HEALING, EDGES WELL APPROXIMATED, NO WARMTH OR REDNESS OR DRAINAGENOTED. KAREN INTACT. DENIES PAIN. SLEPT MOST OF NIGHT.
[2019-03-07 06:11] LABS: HEMOGLOBIN 10.6 gm/dL (14.0-18.0); MCHC 33.2 g/dL (28.0-37.0); MCV 87.3 fL (80.0-100.0); RBC 3.67 mil/uL (4.50-6.00); RDW 15.2 % (10.5-14.5); WBC 16.7 thou/uL (4.0-11.0)
[2019-03-07 06:32] LABS: ALBUMIN 2.5 g/dL (3.4-5.0); CALCIUM 8.2 mg/dL (8.5-10.1); CREATININE 0.5 mg/dL (0.7-1.3); MAGNESIUM 1.7 mg/dL (1.8-2.4); POTASSIUM 4.3 mmol/L (3.5-5.1); TOTAL BILIRUBIN 0.4 mg/dL (<0.1-1.0); TOTAL PROTEIN 5.1 g/dL (6.4-8.2)
[2019-03-07 10:21] VITALS: BP 112/53
--- NOTE | 2019-03-07 11:03 | NUR ---
ASSUME PT CARE AT 0700. REPORTS HAD BEST SLEEP LAST NIGHT. ATE BREAKFAST, GOOD APPETITE. PATIENT ALERT AND ORIENTED X4. ABLE TO VOICE HIS NEEDS. VSS ON 3L. MORNING MEDS GIVEN. B/P 112/53. HELD BLOOD PRESSURE ORDERED. PT REFUSED COLACE AND LOVENOX INJECTION. REPORTS HAD LOOSE STOOL THIS AM. PT IS ON ABT FOR PNEMONIA. NO ADVERSE REACTION EXCEPT LOOSE STOOL. PICC LINE PATENT. MID ABD INCISION HEALING, EDGES WELL APPROXIMATED, NO WARMTH OR REDNESS OR DRAINAGENOTED. KAREN INTACT. DENIES PAIN, N/V. PURSE LIPS INSTRUCTED FOR COPD. OFFERED SUPPORTIVE CARE. UP AND PARTICIPATES WITH THERAPISTS. RESTING IN BED FOR NEXT SECTION. DENIES NEEDS OR CONCERNS AT THIS MOMENT. REASSESSMENT PER CHART. USES URINAL AT BEDSIDE. HAD 300CC YELLOW URINE. LITTLE REDNESS ON SCROTUM CLEANSED AND APPLIED NYSTATIN ORDERED. CHECK FREQUENTLY FOR NEEDS AND SAFETY. WILL CONTINUE TO MONITOR.
--- NOTE | 2019-03-07 13:23 | NUR ---
team meeting, recommendation: re team
[2019-03-07 19:13] VITALS: BP 141/59
[2019-03-08 04:07] LABS: GLYCOHEMOGLOBIN (HGB A1C) 5.9 % (4.8-5.6)
--- NOTE | 2019-03-08 05:16 | NUR ---
ASSESSMENT; PT REMAIN ALERT AND ORIENT TIMES THREE. VSS, AFEBRILE. TOLERATED CPAP FOR ONLY FORTY MINUTES. REFUSED TO STAY ON FOR A SECOND LONGER. DENIED PAIN THROUGH OUT THE SHIFT, SLEPT MOST OF THE NIGHT. ABDOMINAL INCISION INTACT WITH KAREN, SMALL SCANT OF EXUDATE FOR INCISION NOTED ON PT'S T-SHIRT. NO BM THIS SHIFT. SLOW PROGRESS TOWARDS DC GOALS. WILL CONTINUE TO MONITOR.
[2019-03-08 07:30] VITALS: BP 115/60
--- NOTE | 2019-03-08 10:41 | NUR ---
ASSUME PT CARE AT 0700. C/O FEELS WEAK THIS AM. B/P WAS 115/60 HR 82 THIS AM. HAD PT, FEELS WEAK, HR UP TO 120. REASSESSMENT PER CHART. REPORTS HAD BEST SLEEP LAST NIGHT. ATE BREAKFAST, GOOD APPETITE. PATIENT ALERT AND ORIENTED X4. ABLE TO VOICE HIS NEEDS. VSS ON 3L. MORNING MEDS GIVEN. B/P 90/57 HR 109 HELD BLOOD PRESSURE ORDERED. PT REFUSED COLACE D/T HAD LOOSE STOOL THIS AM. PT CONTINUE ON ABT FOR PNEMONIA.PICC LINE PATENT. MID ABD INCISION HEALING, EDGES WELL APPROXIMATED, NO WARMTH OR REDNESS OR DRAINAGENOTED. 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 KAREN INTACT. DENIES PAIN, N/V. PURSE LIPS INSTRUCTED FOR COPD. OFFERED SUPPORTIVE CARE. UP AND PARTICIPATES WITH THERAPISTS. RESTING IN BED FOR NEXT SECTION. DENIES NEEDS OR CONCERNS AT THIS MOMENT. USES URINAL AT BEDSIDE. CHECK FREQUENTLY FOR NEEDS AND SAFETY. WILL CONTINUE TO MONITOR.
[2019-03-08 19:10] VITALS: BP 123/62
--- NOTE | 2019-03-09 06:20 | NUR ---
PT IS ALERT AND ORIENTED. VERY PLEASANT.DENIES PAIN. REPORTS THAT HE SLEPT FAIRLY WELL. USED / ALL THRO THE NOC. CONGESTED COUGH. BLE EDEMA-ENCOURAGED TO ELEVATE LEGS.TEDS IN PLACE. REDNESS TO GROIN IMPROVED.VOIDING OK. NO FURTHER CONCERNS.
[2019-03-09 07:40] VITALS: BP 101/59
--- NOTE | 2019-03-09 14:19 | NUR ---
ASSUMED CARE AT 0700. PATIENT IS ALERT AND ORIENTED X4. PATIEN MARQUEZ'S, FLAMER SEALER ARE EQUAL. LUNGS ARE COARSE AND DEMINISHED ON THE LEFT. 02 AT 3.5 L PER N/C. PATIENT CONTINUES ON RESPIRATORY TX. ABD IS SOFT WITH BSX4. PATIENT USES URINAL TO VOID SE COLORED URINE. PATIENT HAS +2 PEDAL EDEMA IN HIS LOWER EXTREMITIES. FALL AND SAFETY PROTOCOLS IN PLACE. DENIES PAIN AT THIS TIME. PATIENT C/O SORE TONGUE. PATCHES NOTED ON TONGUE UPON ASSESSMENT. HOT IRON WORKER NOTIFIED. MEDICATION ORDERED BY N.P. FALL AND SAFETY PROTOCOLS IN PLACE. PATIENT DENIES PAIN AT THIS TIME. WILL CONTINUE TO MONITER. UP IN THE CHAIR FOR MEALS.
[2019-03-09 20:55] VITALS: BP 113/64
--- NOTE | 2019-03-10 03:52 | NUR ---
ASSESSMENT: PT REMAIN ALERT AND ORIENT TIMES FOUR. ONLY TOLERATED BIPAP FOR APPROXIMATELY ONE HOUR. DENIES PAIN, SOB AND N/V. VSS, AFEBRILE. PT STATE THAT MAGIC WASH IS WORKING FOR THE SORES IN HIS MOUTH AND HE IS NOW ABLE TO EAT BETTER. NO BM. ON 3 LITERS NC AT THIS TIME. SLOW PROGRESS TOWARDS DC GOALS, WILL CONTINUE TO MONITOR.
[2019-03-10 07:30] VITALS: BP 114/59
--- NOTE | 2019-03-10 16:54 | NUR ---
PT ALERT AND ORIENETD TIMES FOUR. VSS, PT DENIES PAIN/SOA. PT WORKED WELL WITH PT/OT TODAY. PT TOLERATES MEDS AND MEALS. PT SLOWLY PROGRESSING TOWRADS POC GOALS.
[2019-03-10 19:18] VITALS: BP 125/66
--- NOTE | 2019-03-11 00:07 | NUR ---
PT ASSESSMENT COMPLETED AND VSS. MEDS GIVEN ORDERED AND WELL TOLERATED. FALL PRECAUTIONS IN PLACE. BIPAP ON FOR 2 HOURS ORDERED. SAT WNL ON 3L NC DURING THE NIGHT. PT ATE 100% OF HS SNACK. VOIDING LARGE AMOUNT OF YELLOW URINE. SLEEPING WELL. WILL CONTINUE TO MONITOR FREQUENTLY.
[2019-03-11 09:11] VITALS: BP 107/67
--- NOTE | 2019-03-11 18:26 | NUR ---
ASSUMED CARE OF PT AT 0715. PT IS A&OX4 AND VITAL SIGNS ARE STABLE. DENIES PAIN AND PARTICIPATED IN SCHEDULED THERAPIES. SURGICAL INCISION TO ABDOMINAL MIDLINE WELL APPROXIMATED WITH KAREN, OPEN TO AIR. 3L O2 VIA NC, MAINTAINING O2 STATS >90%. CRACKLES NOTED IN LEFT LOWER LOBE, DIMINISHED IN ALL OTHER LOBES. ENCOURAGED TO REPOSITION EVERY [address] PRECAUTIONS IN PLACE AND NURSING WILL CONTINUE TO MONITOR.
[2019-03-11 19:30] VITALS: BP 128/63
--- NOTE | 2019-03-12 00:27 | NUR ---
PT ASSESSMENT COMPLETED AND VSS STABLE. MEDS GIVEN ORDERED AND WELL TOLERATED. FALL PRECAUTIONS IN PLACE. PICTURES TAKEN OF PRESSURE WOUND AND BARRIER CREAM APPLIED. TURNING USING PILLOW. BIPAP WORN FOR 2 HOURS THIS EVENING ORDERED. SLEEPING MED ORDERED AND HELPFUL. WILL CONTINUE TO MONITOR FREQUENTLY.
[2019-03-12 07:45] VITALS: BP 104/58
[2019-03-12 08:05] VITALS: BP 119/53
--- NOTE | 2019-03-12 14:29 | NUR ---
ASSUMED CARE OF PT AT 0715. PT IS A&OX4 AND VITAL SIGNS ARE STABLE. PT REPORTS NO PAIN AND PARTICIPATED WITH THERAPIES THIS SHIFT. REPORTS THAT HE FEELS VERY TIRED FROM TAKING MELATONIN 10MG LAST NIGHT AND WOULD LIKE TO NOT TAKE ANY MORE. COCCYX RED, NO OPEN AREAS. PT ENCOURAGED TO CHANGE POSITION FREQUENTLY. KAREEM HOSE IN PLACE FOR +3 PITTING EDEMA IN BILATERAL LOWER EXTREMITIES. 3L O2 VIA NC MAINTAINING O2 SATS >90%. REPORTS LOOSE STOOLS, LAXATIVES AND STOOL SOFTNERS HELD. FALL PRECAUTIONS IN PLACE AND NURSING WILL CONTINUE TO MONITOR.
[2019-03-12 19:19] VITALS: BP 115/69
--- NOTE | 2019-03-13 04:00 | NUR ---
Assumed pt care at 1900.Pt A/OX4,VSS. Denies pain on assessment. Voiding per urinal without problems. Up with SBA/RW.Edema persists to BLE,encouraged to elevate extremities and doing so,has a non productive cough. Did request for magic mouthwash at midnight;though reports doesn't feel any different. Resting comfortably O2 in place at 2L/NC. Fall precautions in place,will continue to monitor pt.
[2019-03-13 08:00] VITALS: BP 112/64
--- NOTE | 2019-03-13 19:32 | NUR ---
ASSUMED CARE OF PT AT 0715. REPORTS SLEPT GOOD. PT A&OX4, ABLE TO VOICE HIS OWN NEEDS. C/O MOUTH SORES, MAGIC MOUTHWASH GIVEN ORDERED Q6HR. DENIES OTHER PAIN AND PARTICIPATED IN SCHEDULED THERAPIES. VS TAKEN, HELD LOSARTAN AND BYSTOLIC ORDERED. PT UP WITH A WALKER. PT HAS BEEN UP AND PARTICIPATES WITH THERAPIST. PHYSICAL THERAPIST REPORTS PT DIDN'T DO WELL WITH THERAPY TODAY D/T HIGH HR. HR [address] LOVE AWARES ABOUT HR. NO ORDER AND WILL CONTINUE TO MONITOR. SURGICAL INCISION TO ABDOMINAL MIDLINE WELL APPROXIMATED WITH KAREN, OPEN TO AIR. 3L O2 VIA NC, MAINTAINING O2 STATS >92%. CRACKLES NOTED IN LEFT LOWER LOBE, DIMINISHED IN ALL OTHER LOBES. CONTINUE TO BE ON BREATHING TX. REDNESS ON BUTTOCKS, BARRIER CREAM APPLIED, DOESN'T HELP MUCH. MAY NEED TO ASK FOR ZGUARD. ENCOURAGED TO REPOSITION EVERY 2 HOURS. REASSESSMENT PER CHART. EDEMA 2+ BLE, KAREEM HOSE IN PLACE. LAST BM WAS YESTERDAY. REFUSED COLACE THIS AM. FALL PRECAUTIONS IN PLACE AND NURSING WILL CONTINUE TO MONITOR. HAD GOOD FAMILY SUPPORT AND HAD VISITORS TODAY. RESTING IN BED. DENIES NEEDS OR CONCERN. GAVE REPORT TO NIGHT NURSE TO CONTINUE TO MONITOR.
[2019-03-13 19:43] VITALS: BP 128/70
--- NOTE | 2019-03-13 23:31 | NUR ---
PT ASSESSMENT COMPLETED AND VSS. MED GIVEN ORDERED AND WELL TOLERATED. FALL PRECAUTIONS IN PLACE. REPOSTIONED ORDERED. BIPAP WORN ORDERED AND RT TX COMPLETED. SAT WNL WITH O2 ON AT 3L. SLEEPING WELL. WILL CONTINUE TO MONITOR.
[2019-03-14 07:53] VITALS: BP 107/55
--- NOTE | 2019-03-14 09:31 | NUR ---
ASSUMED CARE OF PT AT 0715. REPORTS SLEPT GOOD. PT A&OX4, ABLE TO VOICE HIS OWN NEEDS. C/O MOUTH SORES, MAGIC MOUTHWASH GIVEN Q4HR NOW, FEELS BETTER. DENIES OTHER PAIN AND PARTICIPATED IN SCHEDULED THERAPIES. B/P 107/55, HR 109- UP HR 115 WITH THERAPY. HR 98 AT REST. HELD LOSARTAN AND BYSTOLIC ORDERED. NOTIFIED ESTELLA WHO WILL CHANGE PARAMETER FOR B/P AND DECREASE BYSTOLIC TO 2.5MG TO HELP WITH HIS HR. PT UP WITH A WALKER. PT HAS BEEN UP AND PARTICIPATES WITH THERAPIST. SURGICAL INCISION TO ABDOMINAL MIDLINE WELL APPROXIMATED WITH KAREN, OPEN TO AIR. 3L O2 VIA NC, MAINTAINING O2 STATS >95%. LUNG SOUNDS DIMINISHED IN ALL OTHER LOBES. CONTINUE TO BE ON BREATHING TX. REDNESS ON BUTTOCKS, BARRIER CREAM APPLIED, ORDERED. ENCOURAGED TO REPOSITION EVERY 2 HOURS. REASSESSMENT PER CHART. EDEMA 2+ BLE, KAREEM HOSE IN PLACE. HAD BM THIS AM FORMED.REFUSED COLACE THIS AM. FALL PRECAUTIONS IN PLACE. CHECK FREQUENTLY FOR NEEDS AND SAFETY. WILL MONITOR HR AND B/P AND GIVE BYSTOLIC NEED.
--- NOTE | 2019-03-14 10:49 | NUR ---
WOUND CARE CONSULT; IDENTIFIED A STAGE 2 PRESSURE ULCER TO THE RIGHT BUTTOCK AND AREAS OF THE BUTTOCK THAT ARE SLOW TO WOODY AND SIGN OF FRICTION WELL. RECOMMENDATIONS; LOW AIR LOSS PUMP AND BARRIER CREAM TO THE SACRUM/ COCCYX AREAS. TURN Q2 HOURS DISCUSSED WITH RN
[2019-03-14 11:03] VITALS: BP 107/61
--- NOTE | 2019-03-14 12:30 | NUR ---
team meeting, recommendation: re team and dc with hh (pt, ot, st, nursing), cont with home oxygen , possible needs dme and have speak with therapy to set up some training. pt cont on [facility] soft and thin liquid diet.
[2019-03-14 13:24] VITALS: BP 128/73
--- NOTE | 2019-03-14 15:29 | NUR ---
DP FAXED HH REFERRAL TO [facility], DP SPOKE TO Scot AT [facility] AND SHE RECEIVED REFERRAL.
[2019-03-14 19:53] VITALS: BP 115/75
--- NOTE | 2019-03-15 01:27 | NUR ---
ASSUMED CARE AROOUND 190. AXOX4. KAREEM HOSE WERE TAKEN OFF BLE PER PT REQUEST. PER PT, PT HAD TEDS ON ALL DAY LONG. VICTOR M PUMP ARRIVED AND APPLIED TO BED. NO S/S ACUTE DISTRESS NOTED OR REPORTED AT THIS TIME. WILL CONT TO MOTNITOR FOR ANY CHANGES IN CONDITION.
[2019-03-15 07:50] VITALS: BP 107/65
[2019-03-15 08:00] VITALS: BP 107/64
--- NOTE | 2019-03-15 09:01 | NUR ---
ASSUMED CARE OF PT AT 0715. REPORTS SLEPT GOOD. PT A&OX4, ABLE TO VOICE HIS OWN NEEDS. C/O MOUTH SORES BETTER. B/P 107/64, HR 72. BYSTOLIC 2.5MG GIVEN ORDERED. CONTINUE TO BE ON PREDNISONE TAPER DOWN TO 20MG TODAY. MORNING MEDS GIVEN. REFUSES COLACE. BS PRESENT. SURGICAL INCISION TO ABDOMINAL MIDLINE WELL APPROXIMATED WITH KAREN, OPEN TO AIR. 3L O2 VIA NC, MAINTAINING O2 STATS >97%. LUNG SOUNDS DIMINISHED IN ALL OTHER LOBES. CONTINUE TO BE ON BREATHING TX. REDNESS ON BUTTOCKS, BARRIER CREAM APPLIED, ORDERED. LOW AIR MATTRESS IN PLACE. ENCOURAGED TO REPOSITION EVERY 2 HOURS. EDEMA 2+ BLE, KAREEM HOSE IN PLACE. CONTINUE TO BE ON ASPIRATION PRECAUTION. TAKE MED ONE AT THE TIME AND SIT UP RIGHT WHEN EATING. ATE 100% BREAKFAST. FALL PRECAUTIONS IN PLACE. CHECK FREQUENTLY FOR NEEDS AND SAFETY.
--- NOTE | 2019-03-15 10:06 | NUR ---
dp spoke to [facility] and they accept patient who is dc next week, once patient is dc just sent orders and call them.
--- NOTE | 2019-03-15 12:36 | NUR ---
KURT reviewed chart. Discharge home with [facility] is anticipated for Wednesday, 03/22. maintenance planner confirmed that [facility] Is able to accept pt when discharged. KURT is following to assist as needed with discharge planning.
--- NOTE | 2019-03-15 16:01 | NUR ---
I have reviewed the documentation by IVANA MATTHEW from 03/15/19 to 03/15/19 and I concur with it. SUE HERNANDEZ, PT, DPT
[2019-03-15 19:52] VITALS: BP 115/69
--- NOTE | 2019-03-16 00:15 | NUR ---
PT ASSESSMENTS DONE AND VSS. MEDS GIVEN AND WELL TOLERATED. FALL PRECAUTIONS IN PLACE. TURNED AND BARRIER CREAM. BIPAP ON AT HS FOR 2 HRS. SLEEPING WELL. WILL CONTINUE TO MONITOR.
[2019-03-16 06:01] LABS: ABSOLUTE NEUTROPHILS 5.3 thou/uL (1.4-8.2); BASOPHILS 0.2 % (0.0-2.0); EOSINOPHILS 2.1 % (0.0-3.0); HEMATOCRIT 29.5 % (42.0-52.0); HEMOGLOBIN 9.7 gm/dL (14.0-18.0); LYMPHOCYTES 16.2 % (24.0-44.0); MCH 29.6 pg (26.0-34.0); MCHC 32.9 g/dL (28.0-37.0); MONOCYTES 7.9 % (1.0-8.0); PLATELET COUNT 210 thou/uL (150-400); POLYS 73.6 % (36.0-66.0); RBC 3.28 mil/uL (4.50-6.00); RDW 15.9 % (10.5-14.5); WBC 7.2 thou/uL (4.0-11.0)
[2019-03-16 06:41] LABS: CALCIUM 8.2 mg/dL (8.5-10.1); CREATININE 0.6 mg/dL (0.7-1.3); MAGNESIUM 1.6 mg/dL (1.8-2.4); POTASSIUM 3.6 mmol/L (3.5-5.1)
[2019-03-16 07:15] VITALS: BP 106/61
--- NOTE | 2019-03-16 15:54 | NUR ---
I have reviewed the documentation by IVANA MATTHEW from 03/16/19 to 03/16/19 and I concur with it. SUE HERNANDEZ, PT, DPT
--- NOTE | 2019-03-16 20:17 | NUR ---
Assumed care approx. 0700 this AM. Patient was motivated and ready to work with therapy today. Patient in great spirits. Patient on 3LNC and did his round of BID bipap this afternoon during a nap. Patient remains edematous in feet and ankles, approx. 3+ edema. KAREEM saldivar present per orders. at bedside to visit later in the shift. Patient progressing toward plan of care.
[2019-03-16 20:19] VITALS: BP 118/70
--- NOTE | 2019-03-17 04:15 | NUR ---
ASSUMED CARE OF PT AT 1915. PT IS A&OX4. IS ON 3L OF O2 PER NC. USES CPAP BID. IS STABLE. IS UP 1 ASSIST, DORYS W. FALL PRECAUTIONS & HOURLY ROUNDING MAINTAINED. DENIES PAIN. PT IS ABLE TO TURN SELF IN BED. BARRIER CREAM BEING APPLIED TO BOTTOM SKIN TEARS. PT HAS BILAT ANKLE EDEMA. TEDS ON DURING DAY & OFF AT HS. PT IS CURRENTLY SLEEPING. CALL LIGHT WITHIN REACH. LABS & VITALS REVIEWED. WILL CONTINUE TO MONITOR.
[2019-03-17 07:50] VITALS: BP 105/57
--- NOTE | 2019-03-17 11:38 | NUR ---
mendoza spoke with Cristela at [facility] to let her know patient likely dc 03/22/19
--- NOTE | 2019-03-17 16:12 | NUR ---
I have reviewed the documentation by IVANA MATTHEW from 03/17/19 to 03/17/19 and I concur with it. SUE HERNANDEZ, PT, DPT
[2019-03-17 19:44] VITALS: BP 108/55
--- NOTE | 2019-03-17 21:02 | NUR ---
ASSUMED CARE OF PT AT 0715. PT IS A&OX4 AND VITALS ARE STABLE. PT DENIES PAIN AND PARTICIPATED IN SCHEDULED THERAPIES. CONTINUES TO USE 3L O2 VIA NC, MAINTAINING SATS >90%. CPAP 2X DAILY. EDEMA TO BILATERAL LOWER EXTREMITIES +2. KAREEM HOSE IN PLACE, PT ENCOURAGED TO ELEVATE LEGS. 22 KAREN REMOVED FROM SURGICAL INCISION MIDLINE TO ABDOMEN. STERI-STRIPS IN PLACE. NO DRAINAGE, REDNESS, OR EDEMA TO THE SITE. FALL PRECAUTIONS IN PLACE AND NURSING WILL CONTINUE TO MONITOR.
--- NOTE | 2019-03-17 22:58 | NUR ---
ASSUMED CARE OF THE PT AT 1914 PM. LUIZ Renae ET ORIENTED X 3. MAKES NEEDS KNOWN. HAS 02 ON AT 2 L PER N.C. WEARS A CPAP AT TIMES. HEART RATE REGUALR, LUNBS CLEAR BILATERALLY, RESP., EVEN, AND UNLABORED. DENIES PAIN AT THIS TIME. CALL LIGHT WITHIN REACH.
[2019-03-18 07:53] VITALS: BP 115/62
--- NOTE | 2019-03-18 16:44 | NUR ---
ASSUMED CARE OF PT AT 0715. PTIS A&OX4 AND VITAL SIGNS ARE STABLE. DENIES PAIN AND PARTICIPATED IN SCHEDULED THERAPIES. TOOK NAP FOR 2 HOURS THIS AFTERNOON WITH CPAP. PT ON 3L OF O2 VIA NC TO MAINTAIN O2 >90%. MIDLINE INCISION WELL APPROXIMTED, NO DRAINAGE, STERI STRIPS IN PLACE. FALL PRECAUTIONS IN PLACE AND NURSING WILL CONTINUE TO MONITOR.
[2019-03-18 19:30] VITALS: BP 110/56
--- NOTE | 2019-03-19 03:14 | NUR ---
PT RESTING COMFORTABLY AT CHG OF SHIFT, NO C/O PAIN. A+O X4. TOOK HS MEDS W/O PROBLEM. SLEPT WELL THROUGH THE NIGHT WEARING C-PAP. O2 AT 3L. VSS. CORDIAL AND COOPPERATIVE WITH INTERVENTIONS.
[2019-03-19 10:35] VITALS: BP 121/71
[2019-03-19 19:24] VITALS: BP 108/68
--- NOTE | 2019-03-19 19:54 | NUR ---
ASSUMED CARE OF PT AT 0715. PT IS A&OX4 AND VITAL SIGNS ARE STABLE. PT AMBULATED WITH NURSING THROUGHOUT SHIFT. CONTINUES ON 3L O2 VIA NC. DENIES PAIN. SWISH AND SWALLOW PER PROTOCOL. NO CONTINUED REDNESS IN GROIN AREA. FALL PRECAUTIONS IN PLACE AND NURSING WILL CONTINUE TO MONITOR.
--- NOTE | 2019-03-20 02:53 | NUR ---
ASSUMED CARE FROM DAY SHIFT PT RESTING IN BED WITH CPAP ON , LUNG SOUND DECREASED IN BASES RESP EVEN UNLABORED, DISCUSSED PLAN OF CARE AND PT WAS AGREEABLE RESTING WELL THROUGHOUT HOURLY ROUNDS, WILL CONITNUE WITH CURRENT PLAN OF CARE AND WILL REPORT CHANGES.
[2019-03-20 07:45] VITALS: BP 127/67
[2019-03-20 08:12] VITALS: BP 127/67
--- NOTE | 2019-03-20 11:08 | NUR ---
ASSUMED CARE OF PT AT 0715. DIDN'S SLEEP WELL LAST NIGHT. SAT DROP TO 89% AT TIME. CHANGED NEW NASAL CANNULA, SAT BETTER 93% ON 3L. HR UP TO 130 WITH ACTIVITY. GAVE BYSTOLIC ORDERED. WILL CONTINUE TO MONITOR. PT IS A&OX4. UP AND PARTICIPATES WITH THERAPIST. HAS SORE ON LOWER LIP DENIES NEED FOR ANYTHING. CONTINUE TO BE ON LIDOCAINE SWITCH ORDERED. STILL HAS REDNESS ON BUTTOCK, LOW AIR MATTRESS ON. ENCOURAGED PT TO LYING ON THE SIDE. WILL ASK FOR WOUND NURSE TO SEE IF Z GUARD WORK BETTER. NOTIFIED FREDA AND CHEST XRAY ORDER AFTER THERAPY. WILL CONTINUE TO FOLLOW UP. REASSESSMENT PER CHART. INCISION ABD C/D/I WITH STERI STRIPS. FALL PRECAUTIONS IN PLACE AND NURSING WILL CONTINUE TO MONITOR.
--- NOTE | 2019-03-20 16:11 | NUR ---
I have reviewed the documentation by IVANA MATTHEW from 03/20/19 to 03/20/19 and I concur with it. SUE HERNANDEZ, PT, DPT
[2019-03-20 21:00] VITALS: BP 113/64
--- NOTE | 2019-03-20 23:10 | NUR ---
ASSUMED CARE OF THE PT AT 1914 PM. ALERT ET ORIENTED X 3. MAKES NEEDS KNOWN. HEART RATE REGULAR. LUNGS DIM LEFT SIDE, RESP., EVEN AND UNLABORED. +BS HEARD IN ALL 4 QUADRANTS. +PP BILATERALLY. DENIES PAIN AT THIS TIME. WEARS A CPAP AT NIGHT. CALL LIGHT WITHIN REACH.
[2019-03-21 07:50] VITALS: BP 101/65
[2019-03-21 11:29] LABS: ABSOLUTE NEUTROPHILS 5.3 thou/uL (1.4-8.2); BASOPHILS 0.3 % (0.0-2.0); EOSINOPHILS 2.6 % (0.0-3.0); HEMATOCRIT 34.4 % (42.0-52.0); HEMOGLOBIN 11.3 gm/dL (14.0-18.0); LYMPHOCYTES 10.8 % (24.0-44.0); MONOCYTES 6.6 % (1.0-8.0); PLATELET COUNT 157 thou/uL (150-400); POLYS 79.7 % (36.0-66.0); RBC 3.78 mil/uL (4.50-6.00); RDW 15.7 % (10.5-14.5); WBC 6.6 thou/uL (4.0-11.0)
[2019-03-21 11:40] LABS: CALCIUM 8.9 mg/dL (8.5-10.1); CREATININE 0.7 mg/dL (0.7-1.3); MAGNESIUM 1.8 mg/dL (1.8-2.4)
--- NOTE | 2019-03-21 11:55 | NUR ---
ASSUMED CARE OF PT AT 0715. REPORTS SLEPT BETTER LAST NIGHT. ON 3L AT REST AND UP TO 7L WITH ACTIVITY THIS AM. CHEST XRAY YESTERDAY SHOWS INFILTRATED ON LL. NOTIFIED FREDA AND ESTELLA. NEW ORDER FOR MUCINEX BID AND LASIX 4OMG. WILL GIVE MED. PT UP AND PARTICIPATES WITH THERAPISTS. DENIES PAIN. N/V. HAD SMALL LOOSE STOOL THIS AM WITH OT. WILL CONTINUE TO MONITOR. PT IS A&OX4. UP AND PARTICIPATES WITH THERAPIST. HAS SORE ON LOWER LIP DENIES NEED FOR ANYTHING. CONTINUE TO BE ON LIDOCAINE SWITCH ORDERED. STILL HAS REDNESS ON BUTTOCK, LOW AIR MATTRESS ON. ENCOURAGED PT TO LYING ON THE SIDE. BARRIER CREAM APPLIED. REASSESSMENT PER CHART. INCISION ABD C/D/I WITH STERI STRIPS. FALL PRECAUTIONS IN PLACE AND NURSING WILL CONTINUE TO MONITOR.
--- NOTE | 2019-03-21 14:06 | NUR ---
team meeting, recommendation, increased o2 needs. 8L o2 needed yesterday with therapy. using bipap here like he does at home, in am and evening only total 4hrs. has dme at home at. pulm is going to see pt. anticipated possible dc with [facility] ( pt, ot, nursing).
--- NOTE | 2019-03-21 15:29 | NUR ---
I have reviewed the documentation by IVANA MATTHEW from 03/21/19 to 03/21/19 and I concur with it. SUE HERNANDEZ, PT, DPT
[2019-03-21 19:38] VITALS: BP 117/74
--- NOTE | 2019-03-22 05:37 | NUR ---
ASSESSMENT: PT IS ALERT AND ORIENT TIMES THREE. ANTICIPATING GOING HOME TODAY. TOLERATED BIPAP FOR 45 MINS. VSS, AFEBRILE. SATS REMAINED > 97% DENIES PAIN.,
[2019-03-22 06:32] LABS: ABSOLUTE NEUTROPHILS 2.9 thou/uL (1.4-8.2); BASOPHILS 0.4 % (0.0-2.0); EOSINOPHILS 6.3 % (0.0-3.0); HEMATOCRIT 30.5 % (42.0-52.0); HEMOGLOBIN 10.1 gm/dL (14.0-18.0); LYMPHOCYTES 17.1 % (24.0-44.0); MCH 29.8 pg (26.0-34.0); MCHC 33.2 g/dL (28.0-37.0); MCV 89.7 fL (80.0-100.0); MONOCYTES 10.3 % (1.0-8.0); PLATELET COUNT 145 thou/uL (150-400); POLYS 65.9 % (36.0-66.0); RDW 15.8 % (10.5-14.5); WBC 4.3 thou/uL (4.0-11.0)
[2019-03-22 09:26] VITALS: BP 111/65
[2019-03-22] MEDS ORDERED: COLACE100 MG PO (11:22)
[2019-03-22] MEDS ORDERED: MUCINEX600 MG PO (11:22)
[2019-03-22] MEDS ORDERED: PEPCID20 MG PO (11:22)
[2019-03-22] MEDS ORDERED: LASIX 20 MG TAB20 MG PO (11:22)
[2019-03-22] MEDS ORDERED: MELATONIN5 M1 PO (11:22)
[2019-03-22] MEDS ORDERED: MIRALAX17 GM PO (11:22)
[2019-03-22 11:29] LABS: ANION GAP < 0 mmol/L (7-16); BUN 14 mg/dL (7-18); CALCIUM 8.4 mg/dL (8.5-10.1); CHLORIDE 101 mmol/L (98-107); CO2 39 mmol/L (21-32); CREATININE 0.6 mg/dL (0.7-1.3); GLUCOSE 95 mg/dL (74-106); POTASSIUM 3.3 mmol/L (3.5-5.1); SODIUM 139 mmol/L (136-145)
[2019-03-22] MEDS ORDERED: POTASSIUM20 PO (11:39)
--- NOTE | 2019-03-22 12:01 | NUR ---
cm notified by bedside nurse that pt has been cleared for dc by dr erin yanez and other MD agree, pt would like to cont with dc today home with [facility] bertram will transport pt home.
[2019-03-22 12:03] VITALS: BP 111/65
[2019-03-22 12:33] VITALS: BP 111/65
--- NOTE | 2019-03-22 13:23 | NUR ---
WOUND CARE F/U; THE BILATERAL BUTTOCKS FRICTION SHEARING WOUNDS ARE HEALED. RECOMMEDNATION; CONTINUE WITH BARRIER CREAM DAILY/PRN DISCUSSED WITH RN
--- NOTE | 2019-03-22 15:46 | NUR ---
I have reviewed the documentation by IVANA MATTHEW from 03/22/19 to 03/22/19 and I concur with it. SUE HERNANDEZ, PT, DPT
--- NOTE | 2019-03-22 15:53 | NUR ---
DISCHARGE ORDERS COMPLETED. PATIENT DISCHARGING TO HOME WITH [facility]. DISCHARGE/HOME HEALTH ORDERS AND SUMMARY FAXED TO [facility]. VERIFIED RECEIVED WITH [facility], DEMETRIO. DEMETRIO TO FACILITATE PATIENTS HH NEEDS.
[2019-03-22] MEDS ORDERED: ASPIRIN325 PO (15:54)
--- NOTE | 2019-03-22 16:47 | NUR ---
ASSUMED CARE OF PT AT 0715. PT IS A&OX4 AND VITAL SIGNS ARE STABLE. PT DENIES PAIN AND PARTICIPATED IN SCHEDULED THERAPIES. PT STABLE ON 3L O2 VIA NC WITH SPO2 >90%. PT IS STANDBY ASSISTANCE WITH TRANSFERS AND IS ABLE TO PERFORM ADL'S INDEPENDENTLY. PT REPORTED THAT HE WOULD LIKE TO DISCHARGE TODAY IF ALL PROVIDERS ARE OKAY WITH THAT. NATASHA BARBA NOTIFIED AND CLEARED PT FOR DISCHARGE, DR. CHAVARRIA ALSO CLEARED PT. DISCHARGE ORDERS OBTAINED AND PT PROVIDED WITH RX [facility], DISCHARGE EDUCATION COMPLETED, DISCHARGE INSTRUCTIONS DISCUSSED, DISCHARGE PAPERS SIGNED. PRESENT FOR DISCHARGE TEACHING. BROUGHT PERSONAL OXYGEN TANK FOR TRANSPORT HOME. BELONGINGS REMOVED FROM ROOM, PT TRANSPORTED BY [facility] TO [facility] AT 1645.
[2019-03-22 17:00] VITALS: BP 111/65
--- NOTE | 2019-03-23 16:13 | H ---
[facility] [place] [address] HISTORY AND PHYSICAL Name: KEISHA BRITT Room #: 505-P [facility] IN M.R.#: [id number] Admission: 03/06/19 ������������������ Attend Phys: Hero Dillard MD Discharge: 03/22/19 ������������������ Date of : 39 Report #: [id number] THIS REPORT FOR: //name// CC: Hero Valerio DATE OF SERVICE: 03/06/2019 HISTORY AND PHYSICAL AND POST-ADMISSION PHYSICIAN EVALUATION HISTORY OF PRESENT ILLNESS: The patient is a 78-year-old white male who was originally admitted to [facility] on 02/21/2019 when he presented with abdominal pain, was found to have an internal hernia, status post exploratory laparotomy with lysis of adhesions on 02/21/2019. He initially did well, but started having desaturations on his nasal cannula O2. KUB showed possible ileus versus small-bowel obstruction and he was monitored regarding respiratory failure. Pulmonary was involved and he underwent elective intubation on 02/25/2019. He had an ICU stay. The original laparotomy for small-bowel obstruction, hernia repair and lysis of adhesions was done on 02/23/2019. He was treated for suspected sepsis, had severe hypotension, was noted to have acute kidney injury and he had new infiltrates, left greater than right, probable large volume aspiration. He was able to be extubated on 02/27/2019. He was weaned off pressors. NG tube was clamped. He gradually stabilized. He has been on Solu-Medrol per Pulmonary Medicine. He was noted to have significant weakness with considerable decrease in functional mobility and ADL independence from his prior status. He has been needing max assist of 2 for basic bed mobility. Considerable decrease in overall endurance, although he is slowly improving. 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 He has now been admitted for acute in-hospital inpatient rehabilitation. PAST MEDICAL HISTORY: Includes COPD, hypertension. He was on 3 liters nasal prong O2 premorbidly. PAST SURGICAL HISTORY: Includes total hip replacement. HABITS: Past tobacco abuse 1 pack per day, quit 2 years ago. Alcohol, one drink per day. FAMILY HISTORY: Noncontributory. SOCIAL HISTORY: Lives with , house, no entry stairs, there is 12 inside stairs. Did not utilize gait aids, was independent with ADLs premorbidly. ALLERGIES: No known drug allergies. [facility] [address] [place] [address] HISTORY AND PHYSICAL Name: KEISHA BRITT Room #: 505-P [facility] IN M.R.#: [id number] Admission: 03/06/19 ������������������ Attend Phys: Hero Dillard MD Discharge: 03/22/19 ������������������ Date of : 39 Report #: [id number] MEDICATIONS: Please see the full medication listing. This includes vitamins, herbals, and supplements. REVIEW OF SYSTEMS: No headache, fever or chills. Notes he slept better, short of breath with limited activity. Complains of generalized weakness. No current chest pain, shortness of breath, abdominal discomfort. No noted bowel or bladder changes. He has had a prior hip replacement, has complaints of weakness, but no other focal extremity pain complaints. He is in aspiration precautions. PHYSICAL EXAMINATION: GENERAL: He is a pleasant 78-year-old white male, in no obvious distress. The patient is alert. He was seen earlier. VITAL SIGNS: Last recorded temperature 97.5, pulse 100, respirations 22, blood pressure 112/53. HEENT: Facies were symmetric. HEENT appeared to be benign. Cranial nerves are intact. CHEST: Diffuse breath sounds throughout. Currently off oxygen. CARDIOVASCULAR: Sounded regular rate and rhythm. ABDOMEN: Dressing in place. Small amount of serous drainage has been noted from the lower abdominal incision. GENITOURINARY AND RECTAL: Deferred. EXTREMITIES: Functional range of motion of both upper and lower extremities. Strength is a grade 3+/5. DTRs are decreased. No obvious focal sensory decrease. He has been needing significant assistance as far as basic mobility and yesterday was actually max assistive to try to sit to stand and could only take five steps mod assist. Toileting and toilet transfers as well as ADL setup has been dependent. Bed mobility has been mod assist. NEUROLOGIC: In speech therapy, he is on mechanical soft, thin liquid diet and has the precautions as noted. ASSESSMENT: A 78-year-old white male with the following problem list: 1. Critical illness myopathy. 2. Respiratory failure, warranting intubation and ICU stay. 3. Left lung pneumonia aspiration, Enterobacter with Enterobacter bacteremia. 4. Status post laparotomy for small-bowel obstruction, hiatal hernia, lysis of adhesions 02/23/2019. 5. History of chronic obstructive pulmonary disease. 6. Acute hypoxic and hypercarbic respiratory failure. 7. Small-bowel obstruction. 8. Gastroesophageal reflux disease, on acid suppression. 9. Sepsis, resolved. 10. Coronary artery disease. 11. Acute renal insufficiency, which has improved. 12. Hypertension. [facility] [address] [place] [address] HISTORY AND PHYSICAL Name: KESIHA BRITT Room #: 505-P [facility] IN M.R.#: [id number] Admission: 03/06/19 ������������������ Attend Phys: Hero Dillard MD Discharge: 03/22/19 ������������������ Date of : 39 Report #: [id number] PLAN: The patient is admitted for acute in-hospital inpatient rehabilitation. From a postadmission physician evaluation perspective, there are no relevant changes since the preadmission screening. Please see the above review of prior and current medical and functional conditions and comorbidities. Please see the patient's previous and current functional status. As far as risk of complications, the patient has multiple medical comorbidities as noted above. The initial plan of care involves the interdisciplinary acute inpatient rehabilitation program with goal of maximizing his functional independence so he can hopefully return back to his prior living situation. Measurable functional goals would be for the patient to become modified independent with transfers, mobility, ADLs as well as doing well from a swallowing perspective, so he can return back to the home setting. Prognosis is reasonably good with estimated length of stay probably at least 10 days to 2 weeks pending progress. He certainly may warrant more time depending upon how he does. Potential barriers would include his multiple medical comorbidities and decreased functional status. The patient meets diagnostic criteria for an acute in-hospital inpatient rehabilitation stay. He meets the medical necessity criteria and we will have the internal audit consultant physicians continue to follow. He does have the tolerance for therapies and has appropriate discharge goals back to the home setting. ��������������������������������������������� <ELECTRONICALLY SIGNED> ���������������������������������������� By: Hero Dillard MD ��������������������������������������������� 03/23/19 1613 1204 1237 Hero Dillard MD /PMT
--- NOTE | 2019-03-23 16:13 | PLAN ---
[facility] [place] [address] REHAB UNIT PLAN OF CARE Name: KEISHA BRITT Room #: 505-P [facility] IN M.R.#: [id number] Admission: 03/06/19 ������������������ Attend Phys: Hero Dillard MD Discharge: 03/22/19 ������������������ Date of : 39 Report #: [id number] THIS REPORT FOR: //name// CC: Hero Valerio DATE OF SERVICE: 03/08/2019 PROGRESS NOTE AND OVERALL PLAN OF CARE SUBJECTIVE: The patient seen back today in followup. He is in no distress. Last recorded temperature is 98.4, pulse 89, respirations 18, blood pressure 141/59. The patient is alert, pleasant. He is on nasal prong O2, 3 liters. He is max assist for basic transfers. He is ambulating min assist with a front-wheeled walker. He has decreased endurance. Working on energy conservation techniques. Lower body dressing is max assist. ASSESSMENT: 1. Critical illness myopathy. 2. Respiratory failure. 3. Left lung pneumonia with aspiration. 4. Status post laparotomy for small-bowel obstruction, hiatal hernia, lysis of adhesions. 5. History of chronic obstructive pulmonary disease. 6. Small-bowel obstruction. 7. Gastroesophageal reflux disease. 8. Sepsis, resolved. 9. Coronary artery disease. 10. Renal insufficiency, which has improved. Creatinine is now back to normal. 11. Hypertension. PLAN: The overall plan of care is based on the preadmission screen, post-admission physician evaluation and information garnered from therapy assessments. 1. Estimated length of stay is going to be at least 7-10 days and likely longer, pending progress. 2. Medical prognosis is reasonably good. 3. Anticipated interventions includes the interdisciplinary acute inpatient rehabilitation program with PT and OT as well as speech that are following regarding his swallowing issues. He is on a mechanical soft, thin, but is utilizing swallowing precautions. 4. Anticipated functional outcomes would be for the patient to become modified independent with transfers, mobility, ADLs and further improvement in swallowing, so that he can return back to the home setting. 5. Discharge destination would be back to the home setting where he lives with his . 6. Expected therapy by discipline includes PT and OT and speech 1 hour per day each five days a week throughout the duration of the acute inpatient rehabilitation stay. I would anticipate [place] [address] REHAB UNIT PLAN OF CARE Name: KEISHA BRITT Room #: 505-P [facility] IN ..#: [id number] Admission: 03/06/19 ������������������ Attend Phys: Hero Dillard MD Discharge: 03/22/19 ������������������ Date of : 39 Report #: [id number] wean off the speech therapy, as he learns his swallowing strategies and then focus on just PT and OT. ��������������������������������������������� <ELECTRONICALLY SIGNED> ���������������������������������������� By: Hero Dillard MD ��������������������������������������������� 03/23/19 1613 0803 0821 Hero Dillard MD /milind
== END 2019-03-22 17:02 | disposition home health service (06) | DRG 91 ==
LOC: ENTRNSPT 03-22 16:28
PROVIDERS: Nurse Practitioner; Nurse Practitioner Family; ADMIT Physical Medicine & Rehabilitation
PROC: 5A09357 Assistance with Respiratory Ventilation, Less than 24 Consecutive Hours, Continuous Positive Airway Pressure (ICD-10-PCS; principal; 2019-03-08)
PROC: 5A09357 Assistance with Respiratory Ventilation, Less than 24 Consecutive Hours, Continuous Positive Airway Pressure (ICD-10-PCS; 2019-03-12)
PROC: 5A09357 Assistance with Respiratory Ventilation, Less than 24 Consecutive Hours, Continuous Positive Airway Pressure (ICD-10-PCS; 2019-03-13)
PROC: 5A09357 Assistance with Respiratory Ventilation, Less than 24 Consecutive Hours, Continuous Positive Airway Pressure (ICD-10-PCS; 2019-03-14)
PROC: 5A09357 Assistance with Respiratory Ventilation, Less than 24 Consecutive Hours, Continuous Positive Airway Pressure (ICD-10-PCS; 2019-03-15)
PROC: 5A09357 Assistance with Respiratory Ventilation, Less than 24 Consecutive Hours, Continuous Positive Airway Pressure (ICD-10-PCS; 2019-03-16)
PROC: 5A09357 Assistance with Respiratory Ventilation, Less than 24 Consecutive Hours, Continuous Positive Airway Pressure (ICD-10-PCS; 2019-03-18)
PROC: 5A09357 Assistance with Respiratory Ventilation, Less than 24 Consecutive Hours, Continuous Positive Airway Pressure (ICD-10-PCS; 2019-03-19)
PROC: 5A09357 Assistance with Respiratory Ventilation, Less than 24 Consecutive Hours, Continuous Positive Airway Pressure (ICD-10-PCS; 2019-03-20)
PROC: 5A09357 Assistance with Respiratory Ventilation, Less than 24 Consecutive Hours, Continuous Positive Airway Pressure (ICD-10-PCS; 2019-03-21)
PROC: 5A09357 Assistance with Respiratory Ventilation, Less than 24 Consecutive Hours, Continuous Positive Airway Pressure (ICD-10-PCS; 2019-03-22)
DX: G72.81 Critical illness myopathy (principal); J69.0 Pneumonitis due to inhalation of food and vomit; A41.9 Sepsis, unspecified organism; J96.21 Acute and chronic respiratory failure with hypoxia; J96.22 Acute and chronic respiratory failure with hypercapnia; K56.609 Unspecified intestinal obstruction, unspecified as to partial versus complete obstruction; J44.1 Chronic obstructive pulmonary disease with (acute) exacerbation; K46.0 Unspecified abdominal hernia with obstruction, without gangrene; E44.0 Moderate protein-calorie malnutrition; B37.0 Candidal stomatitis; N17.9 Acute kidney failure, unspecified; J44.9 Chronic obstructive pulmonary disease, unspecified; K21.9 Gastro-esophageal reflux disease without esophagitis; I25.10 Atherosclerotic heart disease of native coronary artery without angina pectoris; Z87.891 Personal history of nicotine dependence; I10 Essential (primary) hypertension; R53.81 Other malaise; R33.9 Retention of urine, unspecified; R13.10 Dysphagia, unspecified; E83.42 Hypomagnesemia; Z99.81 Dependence on supplemental oxygen; Z96.649 Presence of unspecified artificial hip joint; Z95.5 Presence of coronary angioplasty implant and graft; G31.84 Mild cognitive impairment of uncertain or unknown etiology
CPT/HCPCS: 10112

== ENCOUNTER → 2019-08-07 | Outpatient (CLI) | payer OTHER ==
[~2019-08-07] MED LIST changes: +ASPIRIN325 PO; +FISH OIL 1,0001 EAC9 PO; +IPRAT-ALBUT 0.5-3 ML INH; +LASIX 20 MG TAB20 MG PO; +MELATONIN5 M1 PO; +MUCINEX600 MG PO; +POTASSIUM20 PO
== END ==
LOC: SJCVC 15:16
DX: R00.0 Tachycardia, unspecified (principal); I25.10 Atherosclerotic heart disease of native coronary artery without angina pectoris; E78.00 Pure hypercholesterolemia, unspecified; I65.23 Occlusion and stenosis of bilateral carotid arteries; I10 Essential (primary) hypertension; J44.9 Chronic obstructive pulmonary disease, unspecified; R07.89 Other chest pain

== ENCOUNTER → 2019-08-08 | Outpatient (CLI) | payer OTHER | LOC: SJCVCIMAG 11:15 | DX: I25.10 Atherosclerotic heart disease of native coronary artery without angina pectoris (principal) ==

== ENCOUNTER → 2019-08-17 | Outpatient (CLI) | payer OTHER ==
[~2019-08-17] VITALS: Ht 180.3 cm; Wt 72.0 kg
--- NOTE | ~2019-08-17 | EKG ---
[facility] Mariaelena [place] [address] ELECTROCARDIOGRAM REPORT Name: KEISHA BRITT Room #: REG [facility]..#: [id number] Admission: 08/17/19 Attend Phys: Justus Espinal MD, Discharge: Date of : 39 Report #: [id number] THIS REPORT FOR: cc: Hola Valerio James L. DO Epiphany, Epiphany MD ~ THIS REPORT FOR: //name// [facility] Test Date: 2019-08-17 Test Time: 07:31:42 Pat Name: KEISHA BRITT Department: Room: Gender: Etcher Electrolytic: Maryam ASHBY : 1940 Requested By: Justus Espinal Order Number: [id number] MD: Measurements Intervals [place] Rate: 74 P: 74 DC: 162 QRS: 63 QRSD: 97 T: 59 QT: 391 QTc: 434 Interpretive Statements Sinus rhythm Compared to ECG 03/06/2019 11:43:28 No significant changes [email or web address] By: 0731 0731 Epiphany EpiphanyMD /EPI
[2019-08-17 07:46] LABS: HEMATOCRIT 41.7 % (42.0-52.0); HEMOGLOBIN 13.3 gm/dL (14.0-18.0); MCH 27.2 pg (26.0-34.0); MCV 85.2 fL (80.0-100.0); RBC 4.9 mil/uL (4.50-6.00); RDW 15.2 % (10.5-14.5); WBC 8.1 thou/uL (4.0-11.0)
[2019-08-17 07:49] LABS: CALCIUM 8.9 mg/dL (8.5-10.1); CREATININE 0.7 mg/dL (0.7-1.3); POTASSIUM 4.1 mmol/L (3.5-5.1)
--- NOTE | 2019-08-19 13:00 | CATHLAB ---
[facility] [place] [address] INVASIVE PROCEDURE REPORT Name: KEISHA BRITT Room #: REG [facility]#: [id number] Admission: 08/17/19 Attend Phys: Justus Espinal MD, Discharge: Date of : 39 Report #: [id number] THIS REPORT FOR: cc: Hola Valerio James L. DO Mancuso, Gerald M. MD [facility] ~ APPROVED REPORT Study performed: 08/17/2019 08:52:53 Patient Details Patient Status: Out-Patient Room #: The patient is a 78 year-old male Event Personnel Justus Espinal Injury/Safety Hazard Assessment, Mariposa Dhillon RN RN, Eryn Rodriges RTR Scrub, Marlena Chacon RTR, HAM PASSER Monitor Procedures Performed Art Access - R femoral artery* Eric Access - R femoral vein Right and Left Heart Cath w/or w/o Coronarie [id number] [facility] Aortogram Abdominal Peripheral Angio [id number] [id number] Initial Mod Sed Same Phys/QHP Gr [id number] 24414 Mod Sed Same Phys/QHP Ea 033022 Hemostasis with Manual pressure Indication Positive stress test Procedure Narrative The Right Groin^ was infiltrated with 1% Lidocaine subcutaneous anesthesia. A PINNACLE 6FR TIF Sheath #[id number] sheath was inserted into the RFA. Coronary angiography was performed using coronary diagnostic catheters. The right coronary system was accessed and visualized with a JR4 catheter. The left coronary system was accessed and visualized with a JL4 catheter. The left ventricle was accessed and visualized with a PIGTAIL catheter. An aortogram of the abdominal aorta was performed. Pre-demployment femoral angiogram was performed . Hemostasis was obtained with manual pressure following sheath removal without any complications. The patient tolerated the procedure well and there were no complications associated with the procedure. There was no hematoma. Intraoperative Conscious Sedation [facility] [address] [place] [address] INVASIVE PROCEDURE REPORT Name: KEISHA BRITT Room #: UMAIR [facility]#: [id number] Admission: 08/17/19 Attend Phys: Justus Espinal, Discharge: Date of : 39 Report #: [id number] Sedation start time: 09:22 Case end Time: 10:16 Fentanyl 50 mcg Versed 1 mg Fluoro Time: 3.59 minutes Dose: DAP 3693.40 cGycm2 327 mGy Contrast Type and Amount: Visipaque 105 ml Hemodynamics The right atrial mean pressure is 8 mmHg. The right ventricular pressure is 44/6 mmHg. The pulmonary artery pressure is 41/22 mmHg with a mean of 31 mmHg. The mean pulmonary capillary wedge pressure is 11 mmHg. The aortic pressure is 131/63 mmHg with a mean of 86 mmHg. The left ventricular pressure is 130/-2 mmHg with a mean of mmHg. The left ventricular end diastolic pressure is 21 mmHg. The cardiac output using thermo method is 3.90 L/min. The cardiac index using thermo method is 2.05 L/min/m2. Conclusion #1 successful right heart catheterization with hemodynamics above. Mild pulmonary hypertension. No evidence of volume overload. #2 normal left ventricular size and systolic function EF 65% #3 abdominal aortogram mildly ectatic aorta with calcification but no aneurysm or occlusive disease renal arteries are widely patent. #4 left main free of disease giving rise to LAD and circumflex. The proximal calcification is noted. #5 proximally calcified LAD without occlusive disease previously placed proximal mid vessel stent with mild in-stent restenosis diffusely diseased to the apex. #5 nondominant circumflex moderate distribution eccentric 3040% proximal lesion with calcification well preserved distal OM system. #6 dominant right coronary with proximal calcification eccentric lesion 3040% mid vessel 30% PDA preserved Recommendations and plan: Continue aggressive risk factor modification. There is no indication for coronary intervention. Patient with mild pulmonary hypertension not volume overload in etiology. COPD is underlying. <ELECTRONICALLY SIGNED> By: Justus Espinal MD, FACC 08/19/19 1259 1259 1259 Justus Espinal MD, FACC /INF
== END | disposition home or self-care (01) ==
LOC: CATH 06:40
PROVIDERS: Internal Medicine Cardiovascular Disease
DX: R94.39 Abnormal result of other cardiovascular function study (principal); I25.10 Atherosclerotic heart disease of native coronary artery without angina pectoris; T82.855A Stenosis of coronary artery stent, initial encounter; I77.811 Abdominal aortic ectasia; I10 Essential (primary) hypertension; I25.2 Old myocardial infarction; J44.9 Chronic obstructive pulmonary disease, unspecified; G47.33 Obstructive sleep apnea (adult) (pediatric); Z98.890 Other specified postprocedural states; Z79.899 Other long term (current) drug therapy; Z96.649 Presence of unspecified artificial hip joint; Z87.891 Personal history of nicotine dependence; Z87.01 Personal history of pneumonia (recurrent)

== ENCOUNTER → 2020-04-22 | Outpatient (CLI) | payer OTHER | LOC: SJCVC 14:38 | PROVIDERS: ATTEND Internal Medicine Cardiovascular Disease | DX: I25.10 Atherosclerotic heart disease of native coronary artery without angina pectoris (principal); I10 Essential (primary) hypertension; E78.00 Pure hypercholesterolemia, unspecified; I65.23 Occlusion and stenosis of bilateral carotid arteries; J44.9 Chronic obstructive pulmonary disease, unspecified; I27.20 Pulmonary hypertension, unspecified; Z99.81 Dependence on supplemental oxygen; Z79.899 Other long term (current) drug therapy; Z87.891 Personal history of nicotine dependence ==